=== PATIENT | male | born 1990 | race Caucasian/White ===

== ENCOUNTER 2018-09-16 23:24 | Inpatient (IN) ==
[2018-09-16] MEDS ORDERED: NS 2,000 ML IV ONE (23:52)
[2018-09-16] MEDS ORDERED: ZOFRAN IV ONE (23:53)
[2018-09-16] MEDS ORDERED: HUMULIN R IV ONE (23:57)
--- NOTE | 2018-09-17 00:07 | PROVIDER DOCUMENTATION ---
This chart was entered by Ashleigh Kim Scribe, acting as scribe for Urban Chandler MD. HPI-General Adult - General Chief Complaint: High Blood Sugar Stated Complaint: "DKA" Time Seen by Provider: 09/16/18 23:47 Source: patient, family (father) Allergies/Adverse Reactions: Patient Allergies Allergy/AdvReac Type Severity Reaction Status Date / Time No Known Allergies Allergy Verified 03/15/16 16:01 Home Medications: Home Medication List Medication Instructions Recorded Confirmed Last Taken Type Insulin Aspart [Novolog Flexpen] 5 unit SQ TID #1 insuln.pen 06/18/18 Unknown Rx Insulin Glargine [Lantus] 20 unit SUBQ QAM #1 insuln.pen 06/18/18 Unknown Rx - History of Present Illness -Gen Adult Nature of Presenting Problems: 28 yom presents to ed with possible DKA. reports weakness, chills,fatigue, n,v. States checked BS yesterday and it was 480. Pt reports taking insulin. Review of Systems - Adult - REVIEW OF SYSTEMS - ADULT Constitutional: reports: chills, fatique. denies: fever, night sweats, weight gain, weight loss Eyes: denies: discharge, blurred vision, double vision, redness Ears, Nose, Mouth & Throat: denies: sinus problem, throat pain Cardiovascular: denies: chest pain, irregular heart rate, orthopnea, syncope Respiratory: denies: cough, shortness of breath, wheezing Gastrointestinal: reports: nausea, vomiting. denies: abdominal pain, constipation, diarrhea, poor appetite Genitourinary: denies: flank pain, frequent UTI's, hematuria, hesitency, incontinence Musculoskeletal: reports: muscle aches, muscle weakness. denies: joint pain, joint swelling Integumentary: denies: hives, mole changes, nail changes, skin sores/ulcer, skin thickening Neurological: denies: ataxia, dizziness/vertigo, headache/migraines, numbness, paresthesia, seizure, slurred speech, syncope, tremors Psychiatric: reports: no symptoms reported Endocrine: reports: see HPI, cold intolerance, increased thirst Hematologic/Lymphatic: denies: blood clots, low blood count, lymphedema, prolonged bleeding, swollen lymph nodes Allergic/Immunologic: reports: no symptoms reported All Other Systems: Reviewed and Negative Past History - Adult - PAST MEDICAL HISTORY-ADULT Review of Records: reports: Nursing Assessment Review, Medications Reviewed Major Childhood Illnesses: reports: denies history Cardiovascular: reports: denies history Respiratory: reports: denies history Gastrointestinal: reports: denies history Obstetrical/Gynecological: reports: denies history Genitourinary: reports: denies history Musculoskeletal: reports: denies history Neurological: reports: denies history Endocrine/Immune: reports: Diabetes Other Conditions: reports: denies history - IMMUNIZATION STATUS Childhood Immunizations: See Nurse Assessment Flu Vaccine: See Nurse Assessment - FAMILY HISTORY Family History: reviewed, not pertinent - SOCIAL HISTORY Smoking: cigarettes, less than 1 pack/day Provider spent 3-5 mins advising pt. on dangers of tobacco.: Discussed manners to quit use, and f/u contacts for add'l counseling. Substance Use: none/never Physical Exam-General - PHYSICAL EXAM-ADULT Initial Vital Signs Reviewed: Yes - CONSTITUTIONAL General Appearance: alert, severe distress, thin, lethargic, obtunded. negative : appears well - EYES Eyes: PERRL/EOMI, pink conjunctivae - HEAD, EARS, NOSE, MOUTH & THROAT HENMT: TMs normal, other (fruity odor of breath). negative: moist mucous membranes (dry) - NECK Neck: non-tender, full range of motion, supple, normal inspection - RESPIRATORY Respiratory: lungs clear, normal breath sounds, no pleuratic chest pain, no respiratory distress, no accessory muscle use - CARDIOVASCULAR Cardiovascular: tachycardia - GASTROINTESTINAL (ABDOMEN) Abdominal Exam: non tender, soft, no organomegaly, no pulsatile mass - MUSCULOSKELETAL Back Exam: normal inspection Extremity: normal range of motion, non-tender - SKIN Integumentary: warm/dry. negative: normal color (flush), normal turgor ( decreased) - NEUROLOGIC Neurologic: grossly normal - PSYCHIATRIC Psych/Mental Status: oriented x 3 Progress - PLAN OF CARE/RESULTS Progress/Plan/Lab Results: Vital Signs - 8 hr 09/16/18 23:38 Temperature 97.9 F Pulse Rate 110 H Respiratory Rate 20 Blood Pressure 127/72 O2 Sat by Pulse Oximetry 99 Orders Category Date Time Status FSBS/Accucheck Result NOW Care 09/16/18 23:48 Active acute [FLAT/UPRIGHT ABD/1 VIEW CHEST] [RAD] Stat Exams 09/16/18 23:54 Ordered ABG [RESP] Routine Lab 09/16/18 23:52 Ordered BLOOD CULTURE [BLDCUL] Stat Lab 09/16/18 23:53 Uncollected CBC WITH ELECTRONIC DIFF [HEME] Stat Lab 09/16/18 23:53 Ordered CMP [COMPREHENSIVE METABOLIC PANEL] [CHEM] Stat Lab 09/16/18 23:53 Uncollected LIPASE [CHEM] Stat Lab 09/16/18 23:55 Ordered 0.9% Sodium Chloride Inj [Ns] 2,000 ml Med 09/16/18 23:52 Active IV 999 mls/hr Insulin Human Regular [Humulin R] Med 09/16/18 23:57 Once 15 unit IV NOW ONE Ondansetron [Zofran] Med 09/16/18 23:53 Discontinued 4 mg IV NOW ONE Result Diagrams: 09/16/18 00:05 - XRAY 1 XRAY: Bilateral XRAY Study: Chest Impression: Normal (no acute pathology) 2 XRAY: Bilateral XRAY Study: Abdomen Impression: Abnormal (constipation) - CHANGE OF SHIFT REPORT (ED Provider) Report Given and Care Transferred to:: Dr. Schofield Time of Transfer: :10 Items Pending: Labs, Other (admission) Departure - Departure Date of Disposition Decision: 09/17/18 Time of Disposition Decision: 01:10 DIAGNOSIS: Diabetic keto-acidosis Qualifiers: Diabetes mellitus type: type 2 Diabetes mellitus chcf insulin use: unspecified ocean transportation intermediary insulin use status Diabetes mellitus complication detail: without coma Qualified Code(s): E11.10 - Type 2 diabetes mellitus with ketoacidosis without coma Nausea and vomiting Qualifiers: Vomiting type: unspecified Vomiting Intractability: unspecified Qualified Code( s): R11.2 - Nausea with vomiting, unspecified Disposition: ADMITTED INPATIENT 09 Certified Medical Emergency: Emergent Condition: Serious Referrals and Follow-Ups: None,PCP [Primary Care Provider] - Discharge Education: Steps to Quit Smoking, [id number] - Critical Care Note This patient required my direct & personal management of CC.: Yes Total Time (mins): 35 Critical Care Statement: This patient required my direct personal management to treat or rule out processes, the absence of which, could potentiallly result in sudden, clinically significant life or limb threatening deterioration. Attestation - Physician/ CARINE Attestation Patient care was provided by Advanced Practice Provider:: No The physician spent face to face time with patient:: Yes Advanced Practice Provider documentation review:: Supervising physician onsite and consulted in the evaluation and care of this patient. The physician did have a face to face encounter with the patient. This chart was documented by the indicated scribe, (Ashleigh Kim Scribe) and accurately reflects the services I performed and decisions made by me, Urban Chandler MD, as attested by the provider's signature.
[2018-09-17] MEDS ORDERED: HUMULIN R (PARKWAY) ONE ×2 (00:09→02:25)
[2018-09-17 00:16] LABS: BE -20.3 mmoll (-3.0-3.0); BLOOD TYPE ARTERIAL; METHB 1.3 % (0.0-1.5); O2(CT) 22.5 mL/dL (15.0-23.0); O2HB 95.4 % (95.0-99.0); PO2(98.6) 110 mmHg (60-100); SAMPLE BLOOD; SAO2 98.9 % (95.0-100.0); THB 16.7 g/dL (11.5-17.4)
[2018-09-17 00:20] LABS: ALLEN TEST YES; MODALITY ROOM AIR; PCO2(98.6) 14 mmHg (35-45); pH(98.6) 7.18 (7.35-7.45)
[2018-09-17 00:27] LABS: BASO# 0.02 X1000 (0.0-0.2); BASO% 0.1 % (0.0-0.8); EOS# 0.01 X1000 (0.0-0.7); HEMATOCRIT 43.2 % (42.0-52.0); HEMOGLOBIN 15.7 g/dL (14.0-18.0); IMM GRAN# 0.23 X1000 (0.0-0.04); IMM GRAN% 0.9 % (0.0-0.5); LYMPH# 2.92 X1000 (1.2-3.4); LYMPH% 11.5 % (20.5-51.1); MCH 30.3 PG (27-31); MCHC 36.3 g/dL (33-37); MCV 83.4 FL (81-99); MONO# 1.89 X1000 (0.11-0.59); MONO% 7.4 % (1.7-9.3); MPV 9.6 FL (7.4-10.4); NEUT# 20.37 X1000 (1.4-6.5); NEUT% 80.1 % (42.2-75.2); PLT 282 X1000 (130-400); RBC 5.18 XMIL (4.7-6.1); RDW 12.1 % (11.5-14.5); WBC 25.44 X1000 (4.8-10.8)
[2018-09-17] MEDS ORDERED: ROCEPHIN 1 GM in NS 50 ML IV ONE (00:57)
[2018-09-17 00:59] LABS: BILIRUBIN URINE NEGATIVE (NEGATIVE); BLOOD URINE 1+ (NEGATIVE); CLARITY CLEAR (CLEAR); KETONE URINE 3+(Large) mg/dL (NEGATIVE); LEUKOCYTES URINE NEGATIVE (NEGATIVE); NITRITE URINE NEGATIVE (NEGATIVE); PROTEIN URINE NEGATIVE (NEGATIVE); SP GRAVITY URINE 1.015; UROBILINOGEN URINE NORMAL
[2018-09-17 01:12] LABS: URINE EPITHELIAL CELLS <10 /HPF (<10); URINE RBC <10 /HPF (<10); URINE WBC <10 /HPF (<10)
[2018-09-17 01:13] LABS: COLOR STRAW; URINE BACTERIA 2+ /HFP; URINE SOURCE CLEAN CATCH
[2018-09-17] MEDS ORDERED: NS 100 ML ONE (02:27)
[2018-09-17 02:38] LABS: ALBUMIN 4.3 g/dL (3.5-5.0); CALCIUM 8.4 mg/dL (8.8-10.2); CREATININE 1.6 mg/dL (0.7-1.2); POTASSIUM 5.6 mmol/L (3.5-5.1); TOTAL BILIRUBIN 0.4 mg/dL (0.20-1.00); TOTAL PROTEIN 7.8 g/dL (6.3-8.3)
[2018-09-17] MEDS ORDERED: NS 1,000 ML ONE ×2 (02:44→07:56)
[2018-09-17] MEDS ORDERED: NS 1,000 ML IV ONE ×2 (02:59→07:59)
[2018-09-17] MEDS: HUMULIN R (PARKWAY) 100 UNITS in NS 100 ML IV SCH ×5 (03:15→14:25)
[2018-09-17 04:22] LABS: AGAP 23; BUN 45 mg/dL (8-22); CALCIUM 8.1 mg/dL (8.8-10.2); CHLORIDE 95 mmol/L (98-107); COSMO 290; CREATININE 1.2 mg/dL (0.7-1.2); ESTIMATED GFR > 60; POTASSIUM 4.5 mmol/L (3.5-5.1); SODIUM 130 mmol/L (136-145); TCO2 13 mmol/L (25-35)
[2018-09-17 04:24] LABS: GLUCOSE 425 mg/dL (70-104)
--- NOTE | 2018-09-17 05:49 | Diag Imaging Result Doc PS360 ---
EXAM: FLAT/UPRIGHT ABD/1 VIEW CHEST HISTORY: nausea and vomiting TECHNIQUE: Flat and upright with chest, four views COMPARISON: None. FINDINGS: The lungs are well expanded. No cardiomegaly. No pneumonia. There has been prior surgery to the left clavicle. No free air beneath the diaphragm. No organomegaly. Prominent stool throughout the colon. No bowel obstruction. No abnormal abdominal calcifications. The stomach is filled with fluid and debris. IMPRESSION: Constipation Electronically signed by Ronnell Mckay 09/17/2018 5:47 AM
[2018-09-17] MEDS: NS 1,000 ML IV SCH ×2 (08:15→22:10)
[2018-09-17] MEDS ORDERED: ZOFRAN IV PRN ×2 (08:32→11:00)
[2018-09-17 08:56] LABS: AGAP 11; BUN 33 mg/dL (8-22); CALCIUM 7.6 mg/dL (8.8-10.2); CHLORIDE 104 mmol/L (98-107); COSMO 279; CREATININE 0.9 mg/dL (0.7-1.2); ESTIMATED GFR > 60; GLUCOSE 189 mg/dL (70-104); PHOSPHORUS 1.7 mg/dL (2.7-4.5); POTASSIUM 4.2 mmol/L (3.5-5.1); SODIUM 133 mmol/L (136-145); TCO2 19 mmol/L (25-35)
[2018-09-17] MEDS ORDERED: SODIUM PHOSPHATE 30 MMOL in D5W 250 ML IV PRN (11:00)
[2018-09-17] MEDS ORDERED: D50W SYRINGE IV PRN (11:00)
[2018-09-17] MEDS ORDERED: TYLENOL PO PRN (11:00)
[2018-09-17] MEDS ORDERED: POTASSIUM CHLORIDE 10% LIQUID PO PRN (11:00)
[2018-09-17] MEDS ORDERED: MAGNESIUM SULFATE 2 GM/S.W.I. 2 GM/50 ML IVPB IV PRN (11:00)
[2018-09-17] MEDS ORDERED: POTASSIUM CHLORIDE 20 MEQ/SWI 20 MEQ/100 ML IVPB IV PRN (11:00)
[2018-09-17] MEDS ORDERED: ZOFRAN PO PRN (11:00)
[2018-09-17] MEDS ORDERED: POTASSIUM CHLORIDE 20 MEQ/SWI 40 MEQ/200 ML IVPB IV PRN (11:00)
[2018-09-17] MEDS ORDERED: POTASSIUM CHLORIDE 20% LIQUID PO PRN (11:00)
[2018-09-17] MEDS ORDERED: ZOFRAN ODT PO PRN (11:12)
[2018-09-17 14:00] LABS: AGAP 9; BUN 30 mg/dL (8-22); CHLORIDE 104 mmol/L (98-107); COSMO 274; CREATININE 0.8 mg/dL (0.7-1.2); ESTIMATED GFR > 60; GLUCOSE 97 mg/dL (70-104); PHOSPHORUS 2.1 mg/dL (2.7-4.5); SODIUM 134 mmol/L (136-145); TCO2 21 mmol/L (25-35)
[2018-09-17] MEDS: D5 NS 1,000 ML IV SCH (14:44)
[2018-09-17] MEDS: ZOSYN 3.375 GM in NS 50 ML IV SCH ×2 (16:08→20:01)
[2018-09-17] MEDS ORDERED: FLU VACCINE IM ONE (16:19)
[2018-09-17] MEDS ORDERED: NICODERM PATCH TD PRN (16:21)
[2018-09-17] MEDS: HUMALOG (PARKWAY) SUBQ SCH ×2 (17:01→22:11)
[2018-09-17 17:56] LABS: AGAP 10; BUN 27 mg/dL (8-22); CALCIUM 7.9 mg/dL (8.8-10.2); CHLORIDE 106 mmol/L (98-107); COSMO 276; CREATININE 0.7 mg/dL (0.7-1.2); ESTIMATED GFR > 60; GLUCOSE 149 mg/dL (70-104); PHOSPHORUS 1.7 mg/dL (2.7-4.5); POTASSIUM 3.9 mmol/L (3.5-5.1); SODIUM 134 mmol/L (136-145); TCO2 19 mmol/L (25-35)
--- NOTE | 2018-09-17 19:23 | HISTORY AND PHYSICAL ---
CHIEF COMPLAINT: Fatigue, nausea, vomiting, and DKA. HISTORY OF PRESENT ILLNESS: This is a 28-year-old gentleman who is well-known to our service for admissions for the same. He presents complaining of generalized weakness, fatigue, nausea, and vomiting. He states this has been present for 4 to 5 days. He has not been taking his insulin. He was actually hospitalized in June 2018 for the same, and he was given prescriptions for NovoLog FlexPen and Lantus. He states he never filled these. Workup in the emergency room is consistent with DKA, and he has been admitted for such. PAST MEDICAL HISTORY: Diabetes mellitus type 1, with noncompliance. PAST SURGICAL HISTORY: Shoulder surgery. SOCIAL HISTORY: He smokes about a pack a day. He uses marijuana daily. He denies any other illicit drugs. He does drink alcohol socially. FAMILY HISTORY: Grandparents were diabetic. ALLERGIES: No known drug allergies. HOME MEDICATIONS: The patient has been taking none. REVIEW OF SYSTEMS: Discussed with patient, with pertinent positives stated in the HPI. He denied any syncope, dizziness, any chest pain, palpitations, any fever, any shortness of breath, cough, any black or bloody vomitus or stools, hematuria, dysuria, frequency, urgency. PHYSICAL EXAMINATION: GENERAL: This is a 28-year-old gentleman who is lying in the bed in no distress. VITAL SIGNS: Blood pressure is 116/82, with a heart rate of 88. Respirations are 18. Temperature is 98.9 degrees oral, with room air saturations 97%. EYES: Pupils are equal, round, react to light. EOMs are intact. Sclerae are anicteric. HEENT: Head is normocephalic, atraumatic. Mucous membranes are dry. NECK: Supple, with trachea midline. CARDIOVASCULAR: Regular rate and rhythm. S1 and S2 appreciated. He has no lower extremity edema, with peripheral pulses palpable x4 extremities. PULMONARY: Breath sounds are clear, with no increased work of breathing noted. Chest rises and falls symmetrically with respiration. GASTROINTESTINAL: Abdomen is soft, nontender, with bowel sounds in all 4 quadrants. SKIN: Warm and dry, with poor turgor. NEUROLOGIC: He is lethargic. He is obtunded. He will turn his head to his name being called. He will answer questions, although he mumbles. It is very difficult to understand. His mother is at bedside and states, "This is the way he acts when his is in DKA." LABS: WBC 25.4, with hemoglobin 15.7, hematocrit 43.2, platelets 282,000. Sodium 121, with a potassium of 5.6. BUN 57, creatinine 1.6, with a glucose of 766. His CO2 is 7, with an anion gap of 32. Blood cultures and urine culture are pending. Abdominal x-ray reveals constipation. Chest reveals lungs are well-expanded. No cardiomegaly. No pneumonia. There has been prior left clavicle surgery. ASSESSMENT: 1. Diabetic ketoacidosis. 2. Nausea and vomiting. 3. Hyponatremia. 4. Hyperkalemia. 5. Acute kidney injury. 6. Intravascular volume depletion, secondary to #1. 7. Leukocytosis. 8. Constipation. 9. Diabetes mellitus type 1, noncompliant with medication and diet. PLAN: The patient will be admitted to the ICU. He will be placed on DKA protocol. We will start antibiotic coverage of Zosyn at present, and any further antibiotics will be culture-driven. We will give Zofran for nausea and vomiting. We will give a nicotine patch as needed for craving. For constipation, we will use lactulose. Further treatments pending hospital course. Dictated by NICHOLAS Chase for Jp Palomino MD This chart was documented by, NICHOLAS Chase and accurately reflects the services performed, treatment plan and medical decisions as attested by the providers signature Jp Palomino MD. cc: NICHOLAS Chase MD
[2018-09-17 21:15] LABS: AGAP 8; BUN 25 mg/dL (8-22); CALCIUM 8.1 mg/dL (8.8-10.2); CHLORIDE 103 mmol/L (98-107); COSMO 279; CREATININE 0.8 mg/dL (0.7-1.2); ESTIMATED GFR > 60; GLUCOSE 243 mg/dL (70-104); MAGNESIUM 2.1 mg/dL (1.5-2.7); PHOSPHORUS 1.5 mg/dL (2.7-4.5); POTASSIUM 3.8 mmol/L (3.5-5.1); SODIUM 133 mmol/L (136-145); TCO2 22 mmol/L (25-35)
[2018-09-18] MEDS: NS 1,000 ML IV SCH ×4 (01:24→04:57)
[2018-09-18] MEDS: D5 NS 1,000 ML IV SCH (01:24)
[2018-09-18] MEDS: ZOSYN 3.375 GM in NS 50 ML IV SCH ×2 (03:01→09:56)
[2018-09-18] MEDS: HUMALOG (PARKWAY) SUBQ SCH ×2 (06:53→14:45)
[2018-09-18 07:17] LABS: HEMATOCRIT 32.8 % (42.0-52.0); HEMOGLOBIN 11.8 g/dL (14.0-18.0); MCH 30.4 PG (27-31); MCV 84.5 FL (81-99); MPV 8.6 FL (7.4-10.4); RBC 3.88 XMIL (4.7-6.1); RDW 12.8 % (11.5-14.5); WBC 10.66 X1000 (4.8-10.8)
[2018-09-18 07:54] LABS: AGAP 10; ALKALINE PHOSPHATASE 70 U/L (32-122); BUN 19 mg/dL (8-22); CALCIUM 7.8 mg/dL (8.8-10.2); CHLORIDE 105 mmol/L (98-107); COSMO 283; CREATININE 0.5 mg/dL (0.7-1.2); ESTIMATED GFR > 60; GLUCOSE 150 mg/dL (70-104); GOT 20 U/L (10-34); GPT 17 U/L (10-44); MAGNESIUM 1.8 mg/dL (1.5-2.7); PHOSPHORUS 1.6 mg/dL (2.7-4.5); POTASSIUM 3.7 mmol/L (3.5-5.1); SODIUM 139 mmol/L (136-145); TCO2 24 mmol/L (25-35); TOTAL PROTEIN 5.1 g/dL (6.3-8.3)
[2018-09-18 12:55] VITALS: BP 117/77
--- NOTE | 2018-09-19 05:03 | DISCHARGE SUMMARY ---
ADMISSION DATE: 09/16/2018 DISCHARGE DATE: 09/18/2018 DIAGNOSES: 1. Diabetic ketoacidosis. 2. Nausea and vomiting, resolved. 3. Hyponatremia and hyperkalemia, resolved. 4. Acute kidney injury, resolved. 5. Intravascular volume depletion, resolved. 6. Leukocytosis, resolved. 7. Diabetes mellitus type 1, noncompliant with medication and diet. DIAGNOSTICS: Abdominal x-ray revealed constipation. Urine culture revealed no growth. HOSPITAL COURSE: Mr. Malcolm presented to the emergency room complaining of abdominal pain, nausea, and vomiting. He was found to be in DKA with an admission blood sugar of 766, with a sodium of 121, potassium 5.6, CO2 was 7, with an anion gap of 32. He was treated with DKA protocol. Insulin drip was weaned since blood sugars have been in the 140 to 240 range. Electrolytes of course have normalized. He has had no further nausea or vomiting. He did tolerate a diabetic diet without any abdominal pain, nausea, or vomiting. Mr. Malcolm was discharged on June 18, 2018 with the same. He was given prescriptions for NovoLog FlexPen as well as Lantus. He states he did not fill these and he has not been taking insulin. Once again, we did discuss the perils of being noncompliant with his diabetes including but not limited to blindness and renal failure, his being noncompliant to which he did voice understanding and stated "everybody keeps telling me that". We also discussed smoking cessation as well as marijuana cessation to which he stated he had no intentions of stopping at this time. DISCHARGE PHYSICAL EXAMINATION: Cardiovascular: Regular rate and rhythm. S1 and S2 are appreciated. Pulmonary: Breath sounds are clear with no increased work of breathing noted. Gastrointestinal: Abdomen is soft, nontender, nondistended with bowel sounds in all 4 quadrants. Neurologic: He is alert and oriented x3. Discharge Vital Signs: Blood pressure is 117/77, with heart rate of 71, respirations are 16, temperature is 98.3 degrees oral, with room air saturation of 100%. DISCHARGE MEDICATIONS: NovoLog FlexPen 5 units subcutaneously with meals and Lantus 20 units subcutaneous q.a.m. DISPOSITION: He is being discharged home in stable condition with family members. This is a greater than 30 minute discharge. FOLLOWUP: He needs to follow up with his primary care provider as well as his health claims examiner. Dictated by NICHOLAS Chase for Jp Palomino MD This chart was documented by, NICHOLAS Chase and accurately reflects the services performed, treatment plan and medical decisions as attested by the providers signature Jp Palomino MD. cc: NICHOLAS Chase MD
--- NOTE | 2018-09-19 06:49 | DISCHARGE SUMMARY ---
ADMISSION DATE: 09/16/2018 DISCHARGE DATE: 09/18/2018 DISCHARGE DIAGNOSES: 1. Diabetic ketoacidosis, resolved. 2. Nausea and vomiting, resolved. 3. Hyponatremia, resolved. 4. Hyperkalemia, resolved. 5. Acute kidney injury, resolved. 6. Intravascular volume depletion, resolved. 7. Diabetes type 1, insulin dependent, extremely noncompliant. CONSULTATIONS: None. PROCEDURES: None. BRIEF HOSPITAL COURSE: The patient is a 28-year-old male who unfortunately is extremely noncompliant. He currently is awake, alert, and oriented. He was admitted to the hospital, confused, disoriented, and unable to speak. He was noted to be in DKA. Thankfully, this has resolved. Unfortunately, it appears as though he just simply quit taking his insulin, and has not taken it for several days. His father, who was in the room, seems somewhat ambivalent to be imperative that Mr. Malcolm has to take his insulin or he will . DISPOSITION: Patient will be discharged home. Again, discussed with him that one of these times if he simply refuses to take his insulin, that he may have a stroke, lose his vision, lose his ability to speak, or care for himself. Mr. Malcolm seems unphased by this revelation. We will discharge him home. We did write a prescription for his normal home insulin. Hopefully, he will go fill it. cc: Jp Palomino MD
== END 2018-09-18 14:55 | disposition home or self-care (01) | DRG 638 ==
LOC: P.ED 23:24 → P.EDIPHOLD 23:25
PROVIDERS: ATTEND Family Medicine
CPT/HCPCS: 36415; 51798; 74022; 80048; 80053; 81001; 82805; 82948; 83690; 83735; 84100; 85025; 85027; 87040; 87088; 96361; 96365; 96366; 96367; 96375; 99285; 99291; A9270; J0696; J1815; J2405; J2543; J7030; J7042; XXXXX

== ENCOUNTER 2019-02-07 05:14 | Inpatient (IN) ==
[2019-02-07] MEDS ORDERED: ZOFRAN IV ONE (05:28)
[2019-02-07] MEDS ORDERED: NS 1,000 ML IV ONE ×3 (05:28→06:51)
[2019-02-07 06:12] LABS: BASO# 0.02 X1000 (0.0-0.2); BASO% 0.1 % (0.0-0.8); HEMATOCRIT 47.5 % (42.0-52.0); HEMOGLOBIN 16.3 g/dL (14.0-18.0); IMM GRAN# 0.07 X1000 (0.0-0.04); IMM GRAN% 0.4 % (0.0-0.5); LYMPH% 14.6 % (20.5-51.1); MCH 31.2 PG (27-31); MCHC 34.3 g/dL (33-37); MCV 90.8 FL (81-99); MONO# 0.72 X1000 (0.11-0.59); MONO% 4.4 % (1.7-9.3); MPV 9.7 FL (7.4-10.4); NEUT# 13.22 X1000 (1.4-6.5); NEUT% 80.5 % (42.2-75.2); PLT 283 X1000 (130-400); RBC 5.23 XMIL (4.7-6.1); RDW 13.2 % (11.5-14.5); WBC 16.43 X1000 (4.8-10.8)
--- NOTE | 2019-02-07 06:21 | PROVIDER DOCUMENTATION ---
HPI-General Adult - General Chief Complaint: Nausea/Vomiting Stated Complaint: VOMITING Time Seen by Provider: 02/07/19 05:24 Source: patient Allergies/Adverse Reactions: Patient Allergies Allergy/AdvReac Type Severity Reaction Status Date / Time No Known Allergies Allergy Verified 09/17/18 10:31 Home Medications: Home Medication List Medication Instructions Recorded Confirmed Last Taken Type Insulin Aspart [Novolog Flexpen] 5 unit SQ TID #1 insuln.pen 09/18/18 Unknown Rx Insulin Glargine [Lantus] 20 unit SUBQ QAM #1 insuln.pen 09/18/18 Unknown Rx - History of Present Illness -Gen Adult Nature of Presenting Problems: Pt presents with hyperglycemia, x 2 days, in 200-300s, associated with n/v x 2 days, similar to prior, type I DM, has been taking insulin, pt denies change in diet or medication, pt denies f/c, amador, cp, sob, cough, ap, diarrhea. Pt is lying in bed in no acute distress. Location of Pain/Injury: reports: none Pain Radiation: reports: no radiation Quality of Pain: reports: none Onset/Duration: reports: 3 days ago Timing: reports: still present Context/Activities at Onset: reports: none Modifying Factors: improves with: nothing Associated Symptoms: reports: nausea, vomiting Similar Symptoms Previously?: Yes Recently seen or treated by another doctor?: No Review of Systems - Adult - REVIEW OF SYSTEMS - ADULT Constitutional: reports: no symptoms reported Eyes: reports: no symptoms reported Ears, Nose, Mouth & Throat: reports: no symptoms reported Cardiovascular: reports: no symptoms reported Respiratory: reports: no symptoms reported Gastrointestinal: reports: see HPI Genitourinary: reports: no symptoms reported Musculoskeletal: reports: no symptoms reported Integumentary: reports: no symptoms reported Neurological: reports: no symptoms reported Psychiatric: reports: no symptoms reported Endocrine: reports: see HPI Hematologic/Lymphatic: reports: no symptoms reported Allergic/Immunologic: reports: no symptoms reported All Other Systems: Reviewed and Negative Past History - Adult - PAST MEDICAL HISTORY-ADULT Review of Records: reports: Old Records Reviewed, Nursing Assessment Review, Medications Reviewed, Social history reviewed & non-contributory. Major Childhood Illnesses: reports: denies history Cardiovascular: reports: denies history Respiratory: reports: denies history Gastrointestinal: reports: denies history Obstetrical/Gynecological: reports: denies history Genitourinary: reports: denies history Musculoskeletal: reports: denies history Neurological: reports: denies history Endocrine/Immune: reports: Diabetes Other Conditions: reports: denies history - IMMUNIZATION STATUS Childhood Immunizations: See Nurse Assessment Flu Vaccine: See Nurse Assessment - FAMILY HISTORY Family History: reviewed, not pertinent Physical Exam-General - PHYSICAL EXAM-ADULT Initial Vital Signs Reviewed: Yes - CONSTITUTIONAL General Appearance: appears well - EYES Eyes: PERRL/EOMI - HEAD, EARS, NOSE, MOUTH & THROAT HENMT: normal ENT inspection - NECK Neck: normal inspection - RESPIRATORY Respiratory: no respiratory distress, no accessory muscle use - CARDIOVASCULAR Cardiovascular: regular rate, rhythm - GASTROINTESTINAL (ABDOMEN) Abdominal Exam: non tender, soft - LYMPHATIC Lymphatic: no adenopathy - MUSCULOSKELETAL Back Exam: normal inspection Extremity: normal range of motion - SKIN Integumentary: normal color - NEUROLOGIC Neurologic: grossly normal - PSYCHIATRIC Psych/Mental Status: normal mood/affect Progress - PLAN OF CARE/RESULTS Progress/Plan/Lab Results: Vital Signs - 8 hr 02/07/19 05:17 Temperature 98.4 F Pulse Rate 116 H Respiratory Rate 20 Blood Pressure 123/89 O2 Sat by Pulse Oximetry 100 Laboratory Results - last 24 hr 02/07/19 02/07/19 05:25 05:30 WBC 16.43 H RBC 5.23 Hgb 16.3 Hct 47.5 MCV 90.8 MCH 31.2 H MCHC 34.3 RDW Std Deviation 13.2 Plt Count 283 MPV 9.7 Immature Gran % (Auto) 0.4 Neut % (Auto) 80.5 H Lymph % (Auto) 14.6 L Sac % (Auto) 4.4 Eos % (Auto) 0.0 Baso % (Auto) 0.1 Immature Gran # (Auto) 0.07 H Neut # (Auto) 13.22 H Lymph # (Auto) 2.40 Sac # (Auto) 0.72 H Eos # (Auto) 0.00 Baso # (Auto) 0.02 POC Glucose 360 H Orders Category Date Time Status CBC WITH ELECTRONIC DIFF [HEME] Stat Lab 02/07/19 05:30 Completed COMPREHENSIVE METABOLIC PANEL [CHEM] Stat Lab 02/07/19 05:30 Received urinalysis [URINALYSIS PL W/POSS RFLX CULT] [URINALYSIS Lab 02/07/19 05:28 Uncollected ] Stat 0.9% Sodium Chloride Inj [Ns] 1,000 ml Med 02/07/19 05:28 Active IV 999 mls/hr 0.9% Sodium Chloride Inj [Ns] 1,000 ml Med 02/07/19 05:28 Active IV 999 mls/hr Ondansetron [Zofran] Med 02/07/19 05:28 Discontinued 8 mg IV NOW ONE Result Diagrams: 02/07/19 05:30 02/07/19 05:30 Departure - Departure Date of Disposition Decision: 02/07/19 Time of Disposition Decision: 06:50 DIAGNOSIS: DKA, type 1 Qualifiers: Diabetes mellitus complication detail: without coma Qualified Code(s): E10.10 - Type 1 diabetes mellitus with ketoacidosis without coma Disposition: ADMITTED INPATIENT 09 Certified Medical Emergency: Emergent Condition: Fair Referrals and Follow-Ups: Livan Issa CRNP [Primary Care Provider] - - Critical Care Note This patient required my direct & personal management of CC.: No Attestation - Physician/ CARINE Attestation Patient care was provided by Advanced Practice Provider:: No The physician spent face to face time with patient:: Yes Advanced Practice Provider documentation review:: Supervising physician onsite and consulted in the evaluation and care of this patient. The physician did have a face to face encounter with the patient.
[2019-02-07 06:26] LABS: ESTIMATED GFR > 60
[2019-02-07 06:44] LABS: AGAP 35; ALBUMIN 5.3 g/dL (3.5-5.0); ALKALINE PHOSPHATASE 100 U/L (32-122); BUN 19 mg/dL (8-22); CALCIUM 9.7 mg/dL (8.8-10.2); CHLORIDE 91 mmol/L (98-107); COSMO 293; GOT 25 U/L (10-34); GPT 31 U/L (10-44); POTASSIUM 5.4 mmol/L (3.5-5.1); SODIUM 137 mmol/L (136-145); TCO2 11 mmol/L (25-35); TOTAL PROTEIN 9.1 g/dL (6.3-8.3)
[2019-02-07 06:48] LABS: GLUCOSE 411 mg/dL (70-104)
[2019-02-07] MEDS ORDERED: TYLENOL PO PRN (06:51)
[2019-02-07] MEDS ORDERED: MORPHINE IV PRN (06:51)
[2019-02-07] MEDS ORDERED: ZOFRAN IV PRN (06:51)
[2019-02-07] MEDS ORDERED: TORADOL IV PRN (06:51)
[2019-02-07 07:32] LABS: BILIRUBIN URINE NEGATIVE (NEGATIVE); BLOOD URINE 4+ (NEGATIVE); CLARITY CLEAR (CLEAR); COLOR YELLOW; KETONE URINE 3+(Large) mg/dL (NEGATIVE); LEUKOCYTES URINE NEGATIVE (NEGATIVE); NITRITE URINE NEGATIVE (NEGATIVE); PROTEIN URINE TRACE mg/dL (NEGATIVE); URINE BACTERIA NEGATIVE /HFP; URINE CAST NONE SEEN /LPF; URINE CRYSTAL NONE SEEN /HPF; URINE EPITHELIAL CELLS <10 /HPF (<10); URINE SOURCE CLEAN CATCH; URINE WBC <10 /HPF (<10); URINE YEAST NONE SEEN /HPF; UROBILINOGEN URINE NORMAL
[2019-02-07] MEDS ORDERED: HUMULIN R (PARKWAY) 100 UNITS in NS 100 ML IV SCH (07:45)
[2019-02-07] MEDS ORDERED: HUMULIN R (PARKWAY) ONE (07:46)
[2019-02-07] MEDS ORDERED: HUMULIN R (PARKWAY) IV ONE (08:03)
[2019-02-07 08:35] LABS: ACETONE SERUM SMALL (NEGATIVE)
[2019-02-07 08:46] LABS: BASO# 0.01 X1000 (0.0-0.2); BASO% 0.1 % (0.0-0.8); HEMATOCRIT 44.9 % (42.0-52.0); HEMOGLOBIN 15.4 g/dL (14.0-18.0); IMM GRAN# 0.06 X1000 (0.0-0.04); IMM GRAN% 0.5 % (0.0-0.5); LYMPH% 9.1 % (20.5-51.1); MCH 31.6 PG (27-31); MCHC 34.3 g/dL (33-37); MONO# 0.55 X1000 (0.11-0.59); MONO% 4.2 % (1.7-9.3); MPV 9.7 FL (7.4-10.4); NEUT# 11.42 X1000 (1.4-6.5); NEUT% 86.1 % (42.2-75.2); PLT 240 X1000 (130-400); RBC 4.88 XMIL (4.7-6.1); RDW 13.3 % (11.5-14.5); WBC 13.24 X1000 (4.8-10.8)
[2019-02-07 08:47] LABS: CK PROFILE 72 U/L (24-204)
[2019-02-07 08:53] LABS: UR AMPHETAMINES QUAL NONE DETECTED (NONE DETECT); UR BARBITUATES QUAL NONE DETECTED (NONE DETECT); UR BENZODIAZEPIN QUAL NONE DETECTED (NONE DETECT); UR CANNABINOIDS QUAL NONE DETECTED (NONE DETECT); UR COCAINE QUAL NONE DETECTED (NONE DETECT); UR METHADONE QUAL NONE DETECTED (NONE DETECT); UR METHAMPHETAMINE QUAL NONE DETECTED (NONE DETECT); UR OPIATES QUAL NONE DETECTED (NONE DETECT); UR OXYCODONE QUAL NONE DETECTED (NONE DETECT); UR PCP QUAL NONE DETECTED (NONE DETECT); UR PROPOXYPHENE QUAL NONE DETECTED (NONE DETECT); UR TCA QUAL NONE DETECTED (NONE DETECT)
[2019-02-07 08:54] LABS: AGAP 31; BUN 17 mg/dL (8-22); CALCIUM 8.4 mg/dL (8.8-10.2); CHLORIDE 98 mmol/L (98-107); COSMO 293; ESTIMATED GFR > 60; MAGNESIUM 1.9 mg/dL (1.5-2.7); PHOSPHORUS 2.7 mg/dL (2.7-4.5); POTASSIUM 4.6 mmol/L (3.5-5.1); SODIUM 137 mmol/L (136-145); TCO2 8 mmol/L (25-35)
[2019-02-07 08:56] LABS: GLUCOSE 409 mg/dL (70-104)
--- NOTE | 2019-02-07 09:13 | Diag Imaging Result Doc PS360 ---
EXAM: CHEST-2 VIEWS HISTORY: leukocytosis TECHNIQUE: Chest two views COMPARISON: 09/17/2018 FINDINGS: The lungs are well expanded. The heart is not enlarged. The vessels are not distended. There are no infiltrates. No pleural effusions. Prior surgery to the left clavicle. IMPRESSION: No pneumonia. Electronically signed by Ronnell cMkay 02/07/2019 9:11 AM
[2019-02-07 09:20] LABS: HEMOGLOBIN A1C 10.8 % (4.8-6.0)
[2019-02-07] MEDS ORDERED: SODIUM BICARBONATE 8.4% 100 MEQ in STERILE WATER INJ. 500 ML IV PRN (09:45)
[2019-02-07] MEDS ORDERED: SODIUM PHOSPHATE 30 MMOL in D5W 250 ML IV PRN (09:45)
[2019-02-07] MEDS ORDERED: POTASSIUM CHLORIDE 20 MEQ/SWI 20 MEQ/100 ML IVPB IV PRN (09:45)
[2019-02-07] MEDS ORDERED: D50W SYRINGE IV PRN (09:45)
[2019-02-07] MEDS ORDERED: POTASSIUM CHLORIDE 20 MEQ/SWI 40 MEQ/200 ML IVPB IV PRN (09:45)
[2019-02-07] MEDS ORDERED: MAGNESIUM SULFATE 2 GM/S.W.I. 2 GM/50 ML IVPB IV PRN (09:45)
[2019-02-07] MEDS ORDERED: POTASSIUM CHLORIDE 20% LIQUID PO PRN (09:45)
[2019-02-07] MEDS: NS 1,000 ML IV SCH ×3 (09:51→23:43)
[2019-02-07] MEDS: D5 NS 1,000 ML IV SCH (10:03)
[2019-02-07 11:15] LABS: LYMPHS 8 % (21-51); MONO 4 % (1-9); SEGS 88 % (42-75)
[2019-02-07 13:05] LABS: BASO# 0.03 X1000 (0.0-0.2); BASO% 0.2 % (0.0-0.8); HEMATOCRIT 38.8 % (42.0-52.0); HEMOGLOBIN 13.4 g/dL (14.0-18.0); IMM GRAN# 0.06 X1000 (0.0-0.04); IMM GRAN% 0.3 % (0.0-0.5); LYMPH# 3.91 X1000 (1.2-3.4); LYMPH% 22.3 % (20.5-51.1); MCH 31.5 PG (27-31); MCHC 34.5 g/dL (33-37); MCV 91.3 FL (81-99); MONO% 9.1 % (1.7-9.3); MPV 9.3 FL (7.4-10.4); NEUT# 11.91 X1000 (1.4-6.5); NEUT% 68.1 % (42.2-75.2); PLT 228 X1000 (130-400); RBC 4.25 XMIL (4.7-6.1); WBC 17.51 X1000 (4.8-10.8)
[2019-02-07 13:17] LABS: AGAP 19; BUN 14 mg/dL (8-22); CHLORIDE 105 mmol/L (98-107); COSMO 284; CREATININE 0.8 mg/dL (0.7-1.2); ESTIMATED GFR > 60; GLUCOSE 170 mg/dL (70-104); MAGNESIUM 1.8 mg/dL (1.5-2.7); PHOSPHORUS 2.4 mg/dL (2.7-4.5); POTASSIUM 4.4 mmol/L (3.5-5.1); SODIUM 140 mmol/L (136-145); TCO2 16 mmol/L (25-35)
[2019-02-07] MEDS: POTASSIUM CHLORIDE 10% LIQUID PO PRN ×2 (15:09→19:06)
--- NOTE | 2019-02-07 15:57 | HISTORY AND PHYSICAL ---
CHIEF COMPLAINT: Nausea, vomiting, high blood sugar. HISTORY OF PRESENT ILLNESS: This is a 28-year-old gentleman with a history of insulin-dependent diabetes with noncompliance. He presents to the emergency room complaining of generalized weakness, fatigue, nausea and vomiting that has been present for 2 days. He states that he has been taking his insulin as prescribed, maintaining a diabetic diet as prescribed. Stated that his blood sugars have been in the 200 to 300 range primarily. He was found to be in DKA with a white blood cell count of 13.2. PAST MEDICAL HISTORY: Diabetes mellitus type 1, insulin-dependent, extremely noncompliant. PAST SURGICAL HISTORY: Tonsillectomy and left shoulder surgery. SOCIAL HISTORY: He smokes about a half a pack a day. ALLERGIES: No known drug allergies. HOME MEDICATIONS: Cymbalta 30 mg p.o. daily, gabapentin 300 mg p.o. 3 times a day, Novolin-R rely on 20 units subcutaneous before meals. REVIEW OF SYSTEMS: Discussed with patient with pertinent positives stated in the HPI. He denied any syncope, dizziness, chest pain, palpitations, any shortness of breath, cough, fever, chills, any black or bloody vomitus or stools, any hematuria or dysuria. PHYSICAL EXAMINATION: GENERAL: This is a 31-year-old gentleman, who is lying in the stretcher in the emergency room in no distress. His dad is at the bedside. VITAL SIGNS: Blood pressure is 127/68, heart rate of 126, respirations are 20 to 22, temperature is 97.8 degrees oral with room air saturations 98 to 100 percent. EYES: Pupils are equal, round, react to light. EOMS are intact. Sclerae are anicteric. HENT: Head is normocephalic, atraumatic. Mucous membranes are dry. NECK: Supple with trachea midline. He has no JVD. CARDIOVASCULAR: Regular rate and rhythm. He is tachycardic. S1 and S2 appreciated. He has no murmur. He has no lower extremity edema. Calves are nontender bilateral with peripheral pulses palpable x4 extremities. PULMONARY: Breath sounds are clear with no increased work of breathing noted. GASTROINTESTINAL: Abdomen is soft, nontender, nondistended with bowel sounds in all 4 quadrants. GENITOURINARY: He has no CVA or suprapubic tenderness. NEUROLOGIC: He is alert and oriented x3. SKIN: Warm and dry. LABS: WBC is 13 to 16.4 with a hemoglobin of 16.3, hematocrit 47.5, and platelets of 283. Sodium 137, potassium 5.4, CO2 is 11, anion gap is 35 with a BUN of 19, creatinine of 1 and a glucose of 411. He is acetone positive. Urine drug screen reveals none detected. X-RAYS: Chest x-ray reveals no pneumonia. ASSESSMENT: 1. Diabetic ketoacidosis. 2. Insulin-dependent diabetes mellitus. 3. Nausea and vomiting. 4. Intravascular volume depletion. 5. Diabetes mellitus type 1 insulin-dependent. Extremely noncompliant. 6. Hyperkalemia. PLAN: Patient will be admitted to ICU. We will start DKA protocol and will replete electrolytes per the protocol. Use Zofran for nausea. We will start diabetic clear liquids at present and, as he improves, we will advance diet. Further treatments pending hospital course. Dictated by NICHOLAS Chase for Jp Palomino MD cc: NICHOLAS Chase MD
[2019-02-07 16:52] LABS: BASO# 0.02 X1000 (0.0-0.2); BASO% 0.1 % (0.0-0.8); EOS# 0.02 X1000 (0.0-0.7); EOS% 0.1 % (0.0-10.0); HEMATOCRIT 37.4 % (42.0-52.0); IMM GRAN# 0.03 X1000 (0.0-0.04); IMM GRAN% 0.2 % (0.0-0.5); LYMPH# 3.51 X1000 (1.2-3.4); LYMPH% 23.8 % (20.5-51.1); MCH 31.4 PG (27-31); MCHC 34.8 g/dL (33-37); MCV 90.3 FL (81-99); MONO# 1.24 X1000 (0.11-0.59); MONO% 8.4 % (1.7-9.3); MPV 9.1 FL (7.4-10.4); NEUT% 67.4 % (42.2-75.2); PLT 216 X1000 (130-400); RBC 4.14 XMIL (4.7-6.1); WBC 14.72 X1000 (4.8-10.8)
[2019-02-07 17:14] LABS: AGAP 14; BUN 11 mg/dL (8-22); CALCIUM 7.9 mg/dL (8.8-10.2); CHLORIDE 107 mmol/L (98-107); COSMO 277; CREATININE 0.7 mg/dL (0.7-1.2); ESTIMATED GFR > 60; GLUCOSE 105 mg/dL (70-104); MAGNESIUM 1.8 mg/dL (1.5-2.7); PHOSPHORUS 2.2 mg/dL (2.7-4.5); POTASSIUM 4.1 mmol/L (3.5-5.1); SODIUM 139 mmol/L (136-145); TCO2 18 mmol/L (25-35)
--- NOTE | 2019-02-07 19:29 | HISTORY AND PHYSICAL ---
ADDENDUM: Patient seen and examined by myself, full note dictated and discussed with nurse practitioner. Patient notes that he has had increased nausea, vomiting, abdominal pain for the past couple of days. States he has not really been drinking or eating anything. He has tried to take insulin although at a lower dose, notes this was not effective. His blood sugar continued to hold therefore he came to the ER. Currently patient is awake, alert, oriented. He is in no current respiratory distress, he is pleasant. HEENT: Normocephalic. Neck: Supple. CV: Regular rate. PLAN: We will admit patient the hospital ICU place on DKA protocol. Further orders as needed. cc: Jp Palomino MD
[2019-02-07 21:19] LABS: BASO# 0.02 X1000 (0.0-0.2); BASO% 0.2 % (0.0-0.8); EOS# 0.04 X1000 (0.0-0.7); EOS% 0.3 % (0.0-10.0); HEMATOCRIT 37.9 % (42.0-52.0); HEMOGLOBIN 13.1 g/dL (14.0-18.0); IMM GRAN# 0.03 X1000 (0.0-0.04); IMM GRAN% 0.2 % (0.0-0.5); LYMPH# 3.12 X1000 (1.2-3.4); LYMPH% 25.4 % (20.5-51.1); MCH 31.5 PG (27-31); MCHC 34.6 g/dL (33-37); MCV 91.1 FL (81-99); MONO# 0.99 X1000 (0.11-0.59); MONO% 8.1 % (1.7-9.3); MPV 9.1 FL (7.4-10.4); NEUT# 8.09 X1000 (1.4-6.5); NEUT% 65.8 % (42.2-75.2); PLT 204 X1000 (130-400); RBC 4.16 XMIL (4.7-6.1); RDW 12.9 % (11.5-14.5); WBC 12.29 X1000 (4.8-10.8)
[2019-02-07 21:29] LABS: AGAP 14; BUN 10 mg/dL (8-22); CALCIUM 7.9 mg/dL (8.8-10.2); CHLORIDE 104 mmol/L (98-107); COSMO 276; CREATININE 0.7 mg/dL (0.7-1.2); ESTIMATED GFR > 60; GLUCOSE 124 mg/dL (70-104); MAGNESIUM 1.8 mg/dL (1.5-2.7); PHOSPHORUS 1.6 mg/dL (2.7-4.5); POTASSIUM 4.2 mmol/L (3.5-5.1); SODIUM 138 mmol/L (136-145); TCO2 20 mmol/L (25-35)
[2019-02-08] MEDS ORDERED: HUMALOG (PARKWAY) ONE (01:25)
[2019-02-08] MEDS: HUMALOG (PARKWAY) SUBQ SCH ×3 (01:29→11:12)
[2019-02-08 05:39] LABS: BASO# 0.03 X1000 (0.0-0.2); BASO% 0.3 % (0.0-0.8); EOS# 0.09 X1000 (0.0-0.7); EOS% 0.9 % (0.0-10.0); HEMATOCRIT 37.2 % (42.0-52.0); HEMOGLOBIN 12.7 g/dL (14.0-18.0); IMM GRAN# 0.02 X1000 (0.0-0.04); IMM GRAN% 0.2 % (0.0-0.5); LYMPH# 3.56 X1000 (1.2-3.4); LYMPH% 35.1 % (20.5-51.1); MCH 30.9 PG (27-31); MCHC 34.1 g/dL (33-37); MCV 90.5 FL (81-99); MONO# 0.81 X1000 (0.11-0.59); MPV 9.2 FL (7.4-10.4); NEUT# 5.64 X1000 (1.4-6.5); NEUT% 55.5 % (42.2-75.2); PLT 193 X1000 (130-400); RBC 4.11 XMIL (4.7-6.1); RDW 12.8 % (11.5-14.5); WBC 10.15 X1000 (4.8-10.8)
[2019-02-08 06:01] LABS: AGAP 12; BUN 10 mg/dL (8-22); CHLORIDE 103 mmol/L (98-107); COSMO 275; CREATININE 0.6 mg/dL (0.7-1.2); ESTIMATED GFR > 60; GLUCOSE 128 mg/dL (70-104); MAGNESIUM 1.8 mg/dL (1.5-2.7); PHOSPHORUS 1.3 mg/dL (2.7-4.5); POTASSIUM 3.6 mmol/L (3.5-5.1); SODIUM 137 mmol/L (136-145); TCO2 23 mmol/L (25-35)
[2019-02-08] MEDS: D5 NS 1,000 ML IV SCH ×2 (06:33→06:34)
[2019-02-08] MEDS: NS 1,000 ML IV SCH (06:34)
[2019-02-08] MEDS: LANTUS INSULIN SUBQ SCH ×2 (08:24→08:46)
[2019-02-08 11:19] VITALS: BP 123/77
--- NOTE | 2019-02-08 22:01 | DISCHARGE SUMMARY ---
ADMISSION DATE: 02/07/2019 DISCHARGE DATE: 02/08/2019 DIAGNOSES: 1. Diabetic ketoacidosis. 2. Insulin-dependent diabetes mellitus. 3. Nausea and vomiting, resolved. 4. Intravascular volume depletion, resolved. 5. Hyperkalemia, resolved. DIAGNOSTICS: Chest x-ray revealed no pneumonia. HOSPITAL COURSE: Mr. Malcolm presented to the emergency room complaining of nausea, vomiting, abdominal pain, and high blood sugar. He was found to be in DKA with an anion gap of 35, a CO2 of 11, and blood sugars in the 400s. He was admitted to ICU, placed on DKA protocol. Today, he is off his insulin drip with blood sugars in the 120 to 202 range. He has had no further abdominal pain, nausea, or vomiting. He is eating a diabetic diet with no difficulty. DISCHARGE VITAL SIGNS: Blood pressure is 123/77 with a heart rate of 70, respirations are 18, temperature is 99 degrees with room air sat 100%. PHYSICAL EXAMINATION: Cardiovascular: Regular rate and rhythm. S1 and S2 appreciated. Pulmonary: Breath sounds are clear with no increased work of breathing noted. Gastrointestinal: Abdomen is soft, nontender, nondistended with bowel sounds in all 4 quadrants. Neurologic: He is alert and oriented x3. Skin: Warm and dry. DISCHARGE MEDICATIONS: 1. Cymbalta 30 mg p.o. daily. 2. Gabapentin 300 mg p.o. t.i.d. 3. Novolin R 20 units before meals. FOLLOWUP: NICHOLAS Banegas. He is to call Sunday to schedule follow-up visit. He has been instructed to call to be seen sooner or return to the ER for recurring nausea, vomiting, abdominal pain, any syncope, dizziness, chest pain, palpitations, any black or bloody vomitus or stools, or temperature greater than 101.5 or for any questions or concerns that he may have. He is being discharged home in stable condition with family members. TIME SPENT: This is a greater than 30 minute discharge. Dictated by NICHOLAS Chase for Jp Palomino MD cc: NICHOLAS Chase MD Eric Crampsey, CRNP
--- NOTE | 2019-02-09 09:15 | DISCHARGE SUMMARY ---
ADMISSION DATE: 02/07/2019 DISCHARGE DATE: 02/08/2019 ADDENDUM: Patient seen and examined by myself. Full note dictated and discussed with nurse practitioner. Patient, unfortunately, is a 28-year-old, somewhat angry individual who is not compliant with his diabetes, although to his benefit, his A1c actually has improved from 14 the last time he was in the hospital to 10. Hopefully, he will continue to understand the importance of blood sugar control and will continue to attempt to improve this. He was placed in the hospital in DKA. Blood sugars were elevated. They did improve with treatment. On discharge, he is awake and alert. He is in no distress and, therefore, he will be discharged home. His blood sugars are much improved. He is eating a full diet. Instructions were given on how to adjust his 70/30 insulin. Please see full note. cc: Jp Palomino MD
== END 2019-02-08 11:38 | disposition home or self-care (01) | DRG 639 ==
LOC: P.ED 05:14 → P.ICU 08:15
PROVIDERS: ATTEND Family Medicine
CPT/HCPCS: 71020; 71046; 80048; 80053; 80104; 80301; 80305; 81001; 82009; 82550; 82948; 83036; 83605; 83735; 84100; 84484; 85025; 96361; 96374; 99285; A9270; G0431; G0434; G0477; J1815; J2405; J7030; XXXXX

== ENCOUNTER 2019-04-05 02:26 | Inpatient (IN) ==
[2019-04-05] MEDS ORDERED: NS 2,000 ML IV ONE (02:49)
[2019-04-05] MEDS ORDERED: G.I. COCKTAIL PO ONE (03:20)
[2019-04-05 03:27] LABS: BASO# 0.04 X1000 (0.0-0.2); BASO% 0.3 % (0.0-0.8); EOS# 0.01 X1000 (0.0-0.7); EOS% 0.1 % (0.0-10.0); HEMATOCRIT 50.1 % (42.0-52.0); IMM GRAN% 0.8 % (0.0-0.5); LYMPH% 26.2 % (20.5-51.1); MCH 31.4 PG (27-31); MCHC 35.9 g/dL (33-37); MCV 87.4 FL (81-99); MONO# 0.62 X1000 (0.11-0.59); MONO% 5.2 % (1.7-9.3); MPV 9.7 FL (7.4-10.4); NEUT# 7.94 X1000 (1.4-6.5); NEUT% 67.4 % (42.2-75.2); PLT 324 X1000 (130-400); RBC 5.73 XMIL (4.7-6.1); RDW 11.9 % (11.5-14.5); WBC 11.81 X1000 (4.8-10.8)
[2019-04-05] MEDS ORDERED: HUMULIN R IV ONE ×2 (03:29→06:30)
[2019-04-05] MEDS ORDERED: NS 1,000 ML IV ONE ×2 (03:29→04:41)
--- NOTE | 2019-04-05 03:32 | PROVIDER DOCUMENTATION ---
HPI-General Adult - General Chief Complaint: High Blood Sugar Stated Complaint: "DIABETIC KETOACIDOSIS" Time Seen by Provider: 04/05/19 02:48 Source: patient Allergies/Adverse Reactions: Patient Allergies Allergy/AdvReac Type Severity Reaction Status Date / Time No Known Allergies Allergy Verified 02/07/19 07:27 Home Medications: Home Medication List Medication Instructions Recorded Confirmed Last Taken Type RX: Duloxetine [Cymbalta] 30 mg PO DAILY 02/07/19 04/05/19 Unknown History RX: Gabapentin 300 mg PO TID 02/07/19 04/05/19 Unknown History Insulin Aspart [Novolog] 15 units SQ AC 04/05/19 04/05/19 Unknown History Insulin Glargine,Hum.rec.anlog 10 units SQ BID 04/05/19 04/05/19 Unknown History [Lantus Solostar] - History of Present Illness -Gen Adult Nature of Presenting Problems: Patient is a 29 year old white male with history of diabetes, takes Lantus and Novolog. Patient reports not eating for past 5 days with nausea and vomiting. Denies fever. Review of Systems - Adult - REVIEW OF SYSTEMS - ADULT Constitutional: reports: see HPI, chills, fatique. denies: fever Eyes: reports: no symptoms reported Ears, Nose, Mouth & Throat: reports: no symptoms reported Cardiovascular: denies: chest pain Respiratory: denies: cough, shortness of breath Gastrointestinal: reports: abdominal pain, nausea Genitourinary: denies: dysuria Musculoskeletal: reports: no symptoms reported Integumentary: denies: rash Neurological: reports: see HPI, dizziness/vertigo Psychiatric: reports: anxiety Endocrine: reports: see HPI, increased thirst, polyuria Hematologic/Lymphatic: reports: no symptoms reported Allergic/Immunologic: reports: no symptoms reported All Other Systems: Reviewed and Negative Past History - Adult - PAST MEDICAL HISTORY-ADULT Review of Records: reports: Old Records Reviewed, Nursing Assessment Review, Medications Reviewed, Social history reviewed & non-contributory. Major Childhood Illnesses: reports: denies history Cardiovascular: reports: denies history Respiratory: reports: denies history Gastrointestinal: reports: denies history Obstetrical/Gynecological: reports: denies history Genitourinary: reports: denies history Musculoskeletal: reports: denies history Neurological: reports: denies history Endocrine/Immune: reports: Diabetes Other Conditions: reports: denies history - IMMUNIZATION STATUS Childhood Immunizations: See Nurse Assessment Flu Vaccine: See Nurse Assessment - FAMILY HISTORY Family History: reviewed, not pertinent Physical Exam-General - PHYSICAL EXAM-ADULT Initial Vital Signs Reviewed: Yes - CONSTITUTIONAL General Appearance: alert, other (generalized weakness with fruity odor) - EYES Eyes: pink conjunctivae - HEAD, EARS, NOSE, MOUTH & THROAT HENMT: moist mucous membranes - NECK Neck: non-tender, full range of motion, supple - RESPIRATORY Respiratory: lungs clear, no accessory muscle use - CARDIOVASCULAR Cardiovascular: regular rate, rhythm, no edema Progress - PLAN OF CARE/RESULTS Progress/Plan/Lab Results: Vital Signs - 8 hr 04/05/19 02:34 Pulse Rate 77 Respiratory Rate 18 Blood Pressure 162/100 O2 Sat by Pulse Oximetry 95 Laboratory Results - last 24 hr 04/05/19 02:58 WBC 11.81 H RBC 5.73 Hgb 18.0 Hct 50.1 MCV 87.4 MCH 31.4 H MCHC 35.9 RDW Std Deviation 11.9 Plt Count 324 MPV 9.7 Immature Gran % (Auto) 0.8 H Neut % (Auto) 67.4 Lymph % (Auto) 26.2 Haskell % (Auto) 5.2 Eos % (Auto) 0.1 Baso % (Auto) 0.3 Immature Gran # (Auto) 0.10 H Neut # (Auto) 7.94 H Lymph # (Auto) 3.10 Haskell # (Auto) 0.62 H Eos # (Auto) 0.01 Baso # (Auto) 0.04 Orders Category Date Time Status FSBS/Accucheck Result NOW Care 04/05/19 02:48 Active ABG [RESP] Routine Lab 04/05/19 03:29 Ordered BMP [BASIC METABOLIC PANEL] [CHEM] Stat Lab 04/05/19 02:58 Received CBC WITH ELECTRONIC DIFF [HEME] Stat Lab 04/05/19 02:58 Completed 0.9% Sodium Chloride Inj [Ns] 1,000 ml Med 04/05/19 03:29 Active IV 999 mls/hr 0.9% Sodium Chloride Inj [Ns] 2,000 ml Med 04/05/19 02:49 Active IV 999 mls/hr Insulin Human Regular [Humulin R] Med 04/05/19 03:29 Discontinued 15 unit IV NOW ONE Lido/Esquivel Alk/Al&mg Hydrox [G.i. Cocktail] Med 04/05/19 03:20 Discontinued 30 ml PO NOW ONE Result Diagrams: 04/05/19 02:58 04/05/19 02:58 - CONSULTS/PCP/HOSPITALIST Notification #1 *Consult/PCP/Hospitalist*: Dr. 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 Diabetes mellitus complication detail: without coma Qualified Code(s): E11.10 - Type 2 diabetes mellitus with ketoacidosis without coma Nausea and vomiting Qualifiers: Vomiting type: unspecified Vomiting Intractability: unspecified Qualified Code(s): R11.2 - Nausea with vomiting, unspecified Disposition: ADMITTED INPATIENT 09 Certified Medical Emergency: Emergent Condition: Serious Referrals and Follow-Ups: Livan Issa CRNP [Primary Care Provider] - - Critical Care Note This patient required my direct & personal management of CC.: No Attestation - Physician/ CARINE Attestation Patient care was provided by Advanced Practice Provider:: No The physician spent face to face time with patient:: Yes Advanced Practice Provider documentation review:: Supervising physician onsite and consulted in the evaluation and care of this patient. The physician did have a face to face encounter with the patient.
[2019-04-05 03:58] LABS: ESTIMATED GFR > 60
[2019-04-05 04:00] LABS: AGAP 40; BUN 23 mg/dL (8-22); CHLORIDE 79 mmol/L (98-107); COSMO 286; CREATININE 1.2 mg/dL (0.7-1.2); POTASSIUM 5.6 mmol/L (3.5-5.1); SODIUM 127 mmol/L (136-145); TCO2 8 mmol/L (25-35)
[2019-04-05 04:01] LABS: CALCIUM 9.1 mg/dL (8.8-10.2)
[2019-04-05 04:02] LABS: GLUCOSE 581 mg/dL (70-104)
[2019-04-05 04:03] LABS: BLOOD TYPE ARTERIAL; HCO3-(ACT) 5.4 mmoll (20.0-26.0); METHB 1.4 % (0.0-1.5); O2(CT) 21.6 mL/dL (15.0-23.0); O2HB 96.2 % (95.0-99.0); PO2(98.6) 148 mmHg (60-100); SAMPLE BLOOD; SAO2 99.6 % (95.0-100.0); THB 15.8 g/dL (11.5-17.4)
[2019-04-05 04:06] LABS: ALLEN TEST NO; MODALITY ROOM AIR; pH(98.6) 7.05 (7.35-7.45)
[2019-04-05 04:07] LABS: PCO2(98.6) 12 mmHg (35-45)
[2019-04-05] MEDS ORDERED: ROCEPHIN 1 GM in NS 50 ML IV ONE (04:17)
[2019-04-05] MEDS ORDERED: NS 100 ML ONE (05:27)
[2019-04-05 06:08] LABS: AGAP 30; ALBUMIN 4.4 g/dL (3.5-5.0); ALKALINE PHOSPHATASE 67 U/L (32-122); BUN 21 mg/dL (8-22); CALCIUM 7.1 mg/dL (8.8-10.2); CHLORIDE 95 mmol/L (98-107); COSMO 282; ESTIMATED GFR > 60; GLUCOSE 385 mg/dL (70-104); GOT 38 U/L (10-34); GPT 36 U/L (10-44); MAGNESIUM 1.9 mg/dL (1.5-2.7); POTASSIUM 4.2 mmol/L (3.5-5.1); SODIUM 131 mmol/L (136-145); TCO2 7 mmol/L (25-35); TOTAL PROTEIN 7.1 g/dL (6.3-8.3)
[2019-04-05] MEDS ORDERED: HUMULIN R (PARKWAY) 100 UNITS in NS 100 ML IV SCH (06:30)
[2019-04-05] MEDS ORDERED: HUMULIN R 100 UNIT in NS 99 ML IV SCH (06:30)
[2019-04-05] MEDS ORDERED: POTASSIUM CHLORIDE 20% LIQUID PO PRN (06:30)
[2019-04-05] MEDS ORDERED: POTASSIUM CHLORIDE 20 MEQ/SWI 20 MEQ/100 ML IVPB IV PRN (06:30)
[2019-04-05] MEDS ORDERED: SODIUM BICARBONATE 8.4% 100 MEQ in STERILE WATER INJ. 500 ML IV PRN (06:30)
[2019-04-05] MEDS ORDERED: NS 1,000 ML IV SCH (06:30)
[2019-04-05] MEDS ORDERED: POTASSIUM CHLORIDE 10% LIQUID PO PRN (06:30)
[2019-04-05] MEDS ORDERED: MAGNESIUM SULFATE 2 GM/S.W.I. 2 GM/50 ML IVPB IV PRN (06:30)
[2019-04-05] MEDS ORDERED: SODIUM PHOSPHATE 30 MMOL in D5W 250 ML IV PRN (06:30)
[2019-04-05] MEDS ORDERED: D50W SYRINGE IV PRN (06:30)
[2019-04-05] MEDS ORDERED: POTASSIUM CHLORIDE 40 MEQ/SWI 40 MEQ/100 ML IVPB IV PRN (06:30)
[2019-04-05 06:59] LABS: AMYLASE 24 U/L (20-200); LIPASE 15 U/L (13-60)
--- NOTE | 2019-04-05 07:35 | Diag Imaging Result Doc PS360 ---
FLAT/UPRIGHT ABD/1 VIEW CHEST - 04/05/2019 INDICATION: nausea,vomiting TECHNIQUE: COMPARISON: 02/07/2019 FINDINGS: The chest is clear. There is a nonobstructive bowel gas pattern. No free air or abnormal calcifications. IMPRESSION: Negative exam. Electronically signed by Richard Ponce 04/05/2019 7:33 AM
[2019-04-05 08:40] LABS: ESTIMATED GFR > 60
[2019-04-05 08:41] LABS: AGAP 23; BUN 19 mg/dL (8-22); CALCIUM 7.1 mg/dL (8.8-10.2); CHLORIDE 97 mmol/L (98-107); COSMO 271; CREATININE 0.8 mg/dL (0.7-1.2); GLUCOSE 210 mg/dL (70-104); MAGNESIUM 1.9 mg/dL (1.5-2.7); POTASSIUM 4.6 mmol/L (3.5-5.1); SODIUM 131 mmol/L (136-145); TCO2 10 mmol/L (25-35)
[2019-04-05] MEDS: NS 1,000 ML IV SCH ×2 (11:24→11:25)
[2019-04-05] MEDS ORDERED: D5 1/2 NS 1,000 ML IV SCH (11:30)
[2019-04-05 13:03] LABS: AGAP 15; BUN 16 mg/dL (8-22); CALCIUM 7.3 mg/dL (8.8-10.2); CHLORIDE 100 mmol/L (98-107); COSMO 268; CREATININE 0.8 mg/dL (0.7-1.2); ESTIMATED GFR > 60; GLUCOSE 179 mg/dL (70-104); MAGNESIUM 1.9 mg/dL (1.5-2.7); PHOSPHORUS 1.7 mg/dL (2.7-4.5); POTASSIUM 4.6 mmol/L (3.5-5.1); SODIUM 131 mmol/L (136-145); TCO2 16 mmol/L (25-35)
[2019-04-05] MEDS ORDERED: LOVENOX SUBQ SCH (14:00)
--- NOTE | 2019-04-05 14:18 | HISTORY AND PHYSICAL ---
CHIEF COMPLAINT: High blood sugar. HISTORY OF PRESENT ILLNESS: This is a 29-year-old gentleman with a history of diabetes mellitus who presents to the emergency room complaining of nausea and vomiting over the last 5 days. He states that he has not eaten much during this time, and he is not taking his diabetic medications. He was found to have a blood sugar of 581. Lab work revealed DKA. He was admitted to ICU and placed on DKA protocol. PAST MEDICAL HISTORY: Diabetes mellitus type 1, insulin-dependent, extremely noncompliant. PAST SURGICAL HISTORY: Tonsillectomy, shoulder surgery. SOCIAL HISTORY: He smokes about a half pack a day. He denies alcohol or illicit drug use. ALLERGIES: No known drug allergies. HOME MEDICATIONS: A list will be obtained by the nursing staff, and once verified, we will review and restart as appropriate. REVIEW OF SYSTEMS: Discussed with patient with pertinent positives stated in HPI. He denied any syncope, dizziness, chest pain, palpitations, shortness of breath, cough, fever, chills, any recent weight loss or weight gain, any black or bloody vomitus or stools, hematuria, or dysuria. PHYSICAL EXAMINATION: GENERAL: This is a 31-year-old gentleman who is lying on the bed in ICU in no distress. VITAL SIGNS: Blood pressure is 132/81 with a heart rate of 84, respirations 18, temperature 97.9, with room air sats 99% to 100%. EYES: Pupils equal, round, react to light. EOMs are intact. Sclerae are anicteric. HEENT: Head is normocephalic, atraumatic. Mucous membranes are moist. NECK: Supple with trachea midline. CARDIOVASCULAR: Regular rate and rhythm. S1 and S2 appreciated. He has no lower extremity edema. Calves are nontender bilateral with peripheral pulses palpable x4 extremities. PULMONARY: Breath sounds are clear. No increased work of breathing noted. Chest rise and fall symmetric with respiration. GASTROINTESTINAL: Abdomen is soft, nontender, nondistended. Bowel sounds in all 4 quadrants. GENITOURINARY: No CVA or suprapubic tenderness. NEUROLOGIC: Alert and oriented x3. SKIN: Warm and dry. LABS: WBC is 11.8 with hemoglobin 18, hematocrit 50, and platelets of 324,000. Sodium is 127, potassium 5.6, BUN is 23, creatinine 1.2 with a glucose of 581. ABGs show pH is 7.05 with a pCO2 of 12, PO2 of 148, and bicarb of 5.4. RADIOLOGY: Abdominal x-ray revealed a negative exam. Chest x-ray is clear. ASSESSMENT AND PLAN: 1. Diabetic ketoacidosis. 2. Leukocytosis which is probably reactive. 3. Hyponatremia secondary to #1. 4. Hyperkalemia secondary to #1. 5. Hypophosphatemia secondary to #1. PLAN: The patient has been admitted to ICU, placed on telemetry. He will be monitored and treated with DKA protocol. We will use Zofran for nausea. We will use Lovenox for DVT prophylaxis. PPI for GI prophylaxis. Further treatments pending hospital course. Dictated by NICHOLAS Chase for Jp Palomino MD cc: NICHOLAS Chase MD
[2019-04-05 18:05] LABS: AGAP 13; BUN 13 mg/dL (8-22); CALCIUM 7.6 mg/dL (8.8-10.2); CHLORIDE 99 mmol/L (98-107); COSMO 265; CREATININE 0.7 mg/dL (0.7-1.2); ESTIMATED GFR > 60; GLUCOSE 178 mg/dL (70-104); PHOSPHORUS 1.7 mg/dL (2.7-4.5); POTASSIUM 3.8 mmol/L (3.5-5.1); SODIUM 130 mmol/L (136-145); TCO2 18 mmol/L (25-35)
[2019-04-05] MEDS ORDERED: LANTUS INSULIN SUBQ ONE (18:44)
[2019-04-05] MEDS: HUMALOG (PARKWAY) SUBQ SCH (20:47)
--- NOTE | 2019-04-05 21:57 | HISTORY AND PHYSICAL ---
ADDENDUM: Patient seen and examined by myself. Full note dictated and discussed with nurse practitioner. Patient only takes Lantus and NovoLog at home. States he has not been eating for the past couple of days therefore he has not been taking his insulin. Notes the symptoms continue to worsen. Denies any fevers or chills. States that his shoulders been hurting and that is the reason he not been getting out of bed get any food. We will admit him the hospital ICU. Treat for DKA and will follow. cc: Jp Palomino MD
[2019-04-06 06:54] LABS: BASO# 0.03 X1000 (0.0-0.2); BASO% 0.4 % (0.0-0.8); EOS# 0.06 X1000 (0.0-0.7); EOS% 0.7 % (0.0-10.0); HEMATOCRIT 38.6 % (42.0-52.0); HEMOGLOBIN 14.1 g/dL (14.0-18.0); IMM GRAN# 0.02 X1000 (0.0-0.04); IMM GRAN% 0.2 % (0.0-0.5); LYMPH# 3.19 X1000 (1.2-3.4); MCH 31.5 PG (27-31); MCHC 36.5 g/dL (33-37); MCV 86.4 FL (81-99); MONO# 0.72 X1000 (0.11-0.59); MONO% 8.6 % (1.7-9.3); MPV 9.2 FL (7.4-10.4); NEUT# 4.37 X1000 (1.4-6.5); NEUT% 52.1 % (42.2-75.2); PLT 208 X1000 (130-400); RBC 4.47 XMIL (4.7-6.1); RDW 11.4 % (11.5-14.5); WBC 8.39 X1000 (4.8-10.8)
[2019-04-06] MEDS: HUMALOG (PARKWAY) SUBQ SCH ×2 (07:02→10:50)
[2019-04-06 07:13] LABS: AGAP 18; ALBUMIN 3.8 g/dL (3.5-5.0); ALKALINE PHOSPHATASE 53 U/L (32-122); BUN 13 mg/dL (8-22); CALCIUM 7.9 mg/dL (8.8-10.2); CHLORIDE 96 mmol/L (98-107); COSMO 272; CREATININE 0.6 mg/dL (0.7-1.2); ESTIMATED GFR > 60; GLUCOSE 262 mg/dL (70-104); GOT 19 U/L (10-34); GPT 23 U/L (10-44); POTASSIUM 3.7 mmol/L (3.5-5.1); SODIUM 131 mmol/L (136-145); TCO2 17 mmol/L (25-35); TOTAL PROTEIN 5.9 g/dL (6.3-8.3)
[2019-04-06] MEDS ORDERED: LANTUS INSULIN SUBQ SCH (09:30)
[2019-04-06] MEDS ORDERED: CYMBALTA PO SCH (09:30)
[2019-04-06 10:19] VITALS: BP 116/80
[2019-04-06] MEDS ORDERED: NEURONTIN PO SCH (13:00)
--- NOTE | 2019-04-06 16:30 | DISCHARGE SUMMARY ---
ADMISSION DATE: 04/05/2019 DISCHARGE DATE: 04/06/2019 DISCHARGE DIAGNOSES: 1. Diabetic ketoacidosis, resolved. 2. Diabetes, noncompliant. 3. Leukocytosis, resolved. 4. Hypernatremia, resolved. 5. Hyperkalemia, resolved. 6. Hypophosphatemia, resolved. 7. Left shoulder pain. CONSULTATIONS: None. PROCEDURES: None. BRIEF HOSPITAL COURSE: Patient is a 29-year-old male who presented to the hospital as he has many times in the past with markedly elevated blood sugar and diagnosed with DKA. He was admitted to the hospital and placed on insulin drip and DKA protocol. On discharge, his blood sugars were 200. He has been off insulin drip for 12 hours. He has tolerated a full diet without any difficulty and, therefore, he will be discharged home. TIME SPENT: Greater than 30 minutes was spent in total care. cc: Jp Palomino MD
== END 2019-04-06 12:00 | disposition home or self-care (01) | DRG 638 ==
LOC: P.ED 02:26 → P.ICU 06:08
PROVIDERS: ATTEND Family Medicine
CPT/HCPCS: 36415; 74022; 80048; 80053; 82150; 82805; 82948; 83605; 83690; 83735; 84100; 85025; 87040; A9270; J0696; J1650; J1815; J7030; XXXXX

== ENCOUNTER 2020-01-06 07:39 | Inpatient (IN) ==
[2020-01-06 08:24] LABS: BLOOD TYPE ARTERIAL; SAMPLE BLOOD
[2020-01-06] MEDS ORDERED: NS 1,000 ML IV ONE ×3 (08:25→10:05)
[2020-01-06 08:26] LABS: HEMATOCRIT 48.5 % (42.0-52.0); HEMOGLOBIN 15.9 g/dL (14.0-18.0); MCH 29.3 PG (27-31); MCHC 32.8 g/dL (33-37); MCV 89.3 FL (81-99); RBC 5.43 XMIL (4.7-6.1); RDW 14.4 % (11.5-14.5); WBC 7.66 X1000 (4.8-10.8)
[2020-01-06 08:29] LABS: BE -13.5 mmoll (-3.0-3.0); METHB 1.3 % (0.0-1.5); O2(CT) 21.9 mL/dL (15.0-23.0); O2HB 95.7 % (95.0-99.0); PO2(98.6) 110 mmHg (60-100); SAO2 99.2 % (95.0-100.0); THB 16.2 g/dL (11.5-17.4); pH(98.6) 7.32 (7.35-7.45)
[2020-01-06 08:38] LABS: ESTIMATED GFR > 60
[2020-01-06 08:49] LABS: PCO2(98.6) 19 mmHg (35-45)
[2020-01-06 08:50] LABS: ALLEN TEST YES; HCO3-(ACT) 14.3 mmoll (20.0-26.0); MODALITY ROOM AIR
[2020-01-06 09:00] LABS: AGAP 37; ALBUMIN 4.8 g/dL (3.5-5.0); ALKALINE PHOSPHATASE 98 U/L (32-122); BUN 15 mg/dL (8-22); CALCIUM 9.3 mg/dL (8.8-10.2); CHLORIDE 89 mmol/L (98-107); CK PROFILE 31 U/L (24-204); COSMO 286; CREATININE 1.3 mg/dL (0.7-1.2); GLUCOSE 377 mg/dL (70-104); GOT 31 U/L (10-34); GPT 31 U/L (10-44); MAGNESIUM 1.9 mg/dL (1.5-2.7); PHOSPHORUS 3.5 mg/dL (2.7-4.5); SODIUM 135 mmol/L (136-145); TCO2 9 mmol/L (25-35); TOTAL PROTEIN 8.7 g/dL (6.3-8.3)
--- NOTE | 2020-01-06 09:12 | PROVIDER DOCUMENTATION ---
HPI-General Adult - General Chief Complaint: DKA ALERT Stated Complaint: ELEVATED BLOOD SUGAR, N/V Time Seen by Provider: 01/06/20 07:42 Source: patient Allergies/Adverse Reactions: Patient Allergies Allergy/AdvReac Type Severity Reaction Status Date / Time No Known Allergies Allergy Verified 02/07/19 07:27 Home Medications: Home Medication List Medication Instructions Recorded Confirmed Last Taken Type Duloxetine [Cymbalta] 30 mg PO DAILY 02/07/19 04/05/19 Unknown History Gabapentin 300 mg PO TID 02/07/19 04/05/19 Unknown History Insulin Aspart [Novolog] 15 units SQ AC 04/05/19 04/05/19 Unknown History Insulin Glargine,Hum.rec.anlog 10 units SQ BID 04/05/19 04/05/19 Unknown History [Lantus Solostar] - History of Present Illness -Gen Adult Nature of Presenting Problems: DEPRESSED YOUNG MAN DESCRIBE UNABLE TO EAT X 3 DAYS THEN VOMITING SINCE 0400. MANY EPISODES DKA SO CAME TO ER. MIREYA JARAMILLOBEATRICE, PCP EBONI BURR.NO FEVER OR INFECTION. TREATED WITH METOPROLOL FOR TACHYCARDIAS. ON TRACEBA 15 BID AND SS NOVALOG. Review of Systems - Adult - REVIEW OF SYSTEMS - ADULT Constitutional: reports: no symptoms reported, fatique. denies: fever Eyes: reports: no symptoms reported Ears, Nose, Mouth & Throat: reports: no symptoms reported Cardiovascular: reports: no symptoms reported Respiratory: reports: no symptoms reported Gastrointestinal: reports: see HPI Genitourinary: reports: no symptoms reported. denies: dysuria Musculoskeletal: reports: no symptoms reported Integumentary: reports: no symptoms reported Neurological: reports: no symptoms reported Psychiatric: reports: no symptoms reported Endocrine: reports: no symptoms reported Hematologic/Lymphatic: reports: no symptoms reported Allergic/Immunologic: reports: no symptoms reported All Other Systems: Reviewed and Negative Past History - Adult - PAST MEDICAL HISTORY-ADULT Review of Records: reports: Old Records Reviewed, Nursing Assessment Review, Medications Reviewed, Social history reviewed & non-contributory. Major Childhood Illnesses: reports: denies history Cardiovascular: reports: denies history Respiratory: reports: denies history Gastrointestinal: reports: denies history Obstetrical/Gynecological: reports: denies history Genitourinary: reports: denies history Musculoskeletal: reports: denies history Neurological: reports: denies history Endocrine/Immune: reports: Diabetes Other Conditions: reports: denies history - IMMUNIZATION STATUS Childhood Immunizations: See Nurse Assessment Flu Vaccine: See Nurse Assessment - FAMILY HISTORY Family History: reviewed, not pertinent Physical Exam-General - PHYSICAL EXAM-ADULT Initial Vital Signs Reviewed: Yes (TACHYCARD) - CONSTITUTIONAL General Appearance: alert, mild distress - EYES Eyes: PERRL/EOMI - HEAD, EARS, NOSE, MOUTH & THROAT HENMT: normocephalic/atraumatic, moist mucous membranes - NECK Neck: full range of motion - RESPIRATORY Respiratory: lungs clear - CARDIOVASCULAR Cardiovascular: regular rate, rhythm, no edema, tachycardia - GASTROINTESTINAL (ABDOMEN) Abdominal Exam: non tender, soft - MUSCULOSKELETAL Extremity: normal range of motion, non-tender, normal gait - SKIN Integumentary: normal color, normal turgor, warm/dry - NEUROLOGIC Neurologic: timber rider II-XII nml as tested, grossly normal, no motor/sensory deficits - PSYCHIATRIC Psych/Mental Status: normal mood/affect, normal thought content, normal thought process, oriented x 3 Progress - PLAN OF CARE/RESULTS Progress/Plan/Lab Results: Vital Signs - 8 hr 01/06/20 07:47 Temperature 99 F Pulse Rate 131 H Respiratory Rate 25 H Blood Pressure 128/91 O2 Sat by Pulse Oximetry 99 Laboratory Results - last 24 hr 01/06/20 01/06/20 01/06/20 07:52 08:00 08:00 WBC RBC Hgb Hct MCV MCH MCHC RDW Std Deviation Plt Count MPV Specimen Type ARTERIAL Sample Site R RADIAL pH 7.32 L pCO2 19 L* pO2 110 H HCO3 14.3 L Base Excess -13.5 L Oxyhemoglobin 95.7 ABG O2 Sat (Calculated) 21.9 ABG O2 Saturation 99.2 ABG Carboxyhemoglobin 2.20 ABG Methemoglobin 1.3 Kendrick Test YES A-a O2 Difference 16.0 Total Hemoglobin 16.2 Lactate 2.40 H Blood Gas Modality ROOM AIR FiO2 % 21.0 Sodium Potassium Chloride Carbon Dioxide Anion Gap BUN Creatinine Estimated GFR/1.73 m2 BUN/Creatinine Ratio Glucose POC Glucose 397 H Calculated Osmolality Calcium Phosphorus Magnesium Total Bilirubin AST ALT Alkaline Phosphatase Creatine Kinase Troponin T High Sens Total Protein Albumin Globulin Albumin/Globulin Ratio Acetone Level LARGE A 01/06/20 01/06/20 01/06/20 08:00 08:00 08:00 WBC 7.66 RBC 5.43 Hgb 15.9 Hct 48.5 MCV 89.3 MCH 29.3 MCHC 32.8 L RDW Std Deviation 14.4 Plt Count 319 MPV 9.0 Specimen Type Sample Site pH pCO2 pO2 HCO3 Base Excess Oxyhemoglobin ABG O2 Sat (Calculated) ABG O2 Saturation ABG Carboxyhemoglobin ABG Methemoglobin Kendrick Test A-a O2 Difference Total Hemoglobin Lactate Blood Gas Modality FiO2 % Sodium 135 L Potassium 4.0 Chloride 89 L Carbon Dioxide 9 L Anion Gap 37 BUN 15 Creatinine 1.3 H Estimated GFR/1.73 m2 > 60 BUN/Creatinine Ratio 12 Glucose 377 H POC Glucose Calculated Osmolality 286 Calcium 9.3 Phosphorus 3.5 Magnesium 1.9 Total Bilirubin 0.50 AST 31 ALT 31 Alkaline Phosphatase 98 Creatine Kinase 31 Troponin T High Sens < 6 Total Protein 8.7 H Albumin 4.8 Globulin 4.0 Albumin/Globulin Ratio 1.0 Acetone Level Orders Category Date Time Status Cardiac Monitoring DIRECTED Care 01/06/20 07:51 Active FSBS/Accucheck Result Q1H Care 01/06/20 07:51 Active Finger Stick Blood Sugar (ED) DIRECTED Care 01/06/20 07:51 Active NEWS Score >or=5:Order NEWS Bundle S.O. NOW Care 01/06/20 07:51 Active Saline Loc NOW Care 01/06/20 07:51 Active Saline Loc NOW Care 01/06/20 07:51 Active Vital Signs Order Q1H Care 01/06/20 07:51 Active ABG [RESP] Routine Lab 01/06/20 08:00 Completed ACETONE SERUM [CHEM] Stat Lab 01/06/20 08:00 Completed CBC WITH NO DIFF [HEME] Stat Lab 01/06/20 08:00 Completed CK PROFILE [SP CHEM] Stat Lab 01/06/20 08:00 Completed COMPREHENSIVE METABOLIC PANEL [CHEM] Stat Lab 01/06/20 08:00 Completed MAGNESIUM [CHEM] Stat Lab 01/06/20 08:00 Completed PHOSPHORUS [CHEM] Stat Lab 01/06/20 08:00 Completed TROPONIN T HIGH SENSITIVITY Stat Lab 01/06/20 08:00 Completed URINALYSIS W/POSS RFLX CULT [URINALYSIS] Stat Lab 01/06/20 08:23 Ordered URINALYSIS [URINALYSIS] Stat Lab 01/06/20 07:51 Uncollected URINE DRUG SCREEN PL Stat Lab 01/06/20 07:51 Uncollected [address]INE DRUG SCREEN PL Stat Lab 01/06/20 08:26 Ordered 0.9% Sodium Chloride Inj [Ns] 1,000 ml Med 01/06/20 08:25 Active IV 999 mls/hr EKG [EKG] Routine Ther 01/06/20 07:51 Ordered Result Diagrams: 01/06/20 08:00 01/06/20 08:00 - CONSULTS/PCP/HOSPITALIST Notification #1 *Consult/PCP/Hospitalist*: DR YAÑEZ Time Discussed: 09:12 Consult Disposition: Admit Departure - Departure Date of Disposition Decision: 01/06/20 Time of Disposition Decision: 09:11 DIAGNOSIS: Diabetic keto-acidosis Qualifiers: Diabetes mellitus type: type 1 Diabetes mellitus complication detail: without coma Qualified Code(s): E10.10 - Type 1 diabetes mellitus with ketoacidosis without coma Nausea and vomiting Qualifiers: Vomiting type: unspecified Vomiting Intractability: non-intractable Qualified Code(s): R11.2 - Nausea with vomiting, unspecified Disposition: ADMITTED INPATIENT 09 Certified Medical Emergency: Emergent Condition: Fair Referrals and Follow-Ups: Eboni Burr CRNP [Primary Care Provider] - - Critical Care Note This patient required my direct & personal management of CC.: Yes Total Time (mins): 30 Critical Care Statement: This patient required my direct personal management to treat or rule out processes, the absence of which, could potentiallly result in sudden, clinically significant life or limb threatening deterioration. Attestation - Physician/ CARINE Attestation Patient care was provided by Advanced Practice Provider:: No The physician spent face to face time with patient:: Yes Advanced Practice Provider documentation review:: Supervising physician onsite and consulted in the evaluation and care of this patient. The physician did have a face to face encounter with the patient.
[2020-01-06] MEDS ORDERED: ZOFRAN IV ONE (09:22)
--- NOTE | 2020-01-06 09:53 | EKG Report ---
Test Performed on : 01/06/2020 08:52:36 AM Test Reason : DKA Blood Pressure : / mmHG Vent. Rate : 084 BPM Atrial Rate : 084 BPM P-R Int : 166 ms QRS Dur : 086 ms QT Int : 380 ms P-R-T Axes : 051 032 043 degrees QTc Int : 449 ms Normal sinus rhythm. Early repolarization Normal ECG No previous ECGs available Unconfirmed Result
[2020-01-06] MEDS ORDERED: HUMULIN R IV ONE (10:02)
[2020-01-06] MEDS ORDERED: D50W SYRINGE IV PRN (10:02)
[2020-01-06] MEDS ORDERED: HUMULIN R 100 UNIT in NS 100 ML IV SCH ×2 (10:15→12:00)
[2020-01-06] MEDS ORDERED: ZOFRAN IV PRN (10:21)
[2020-01-06] MEDS ORDERED: HUMULIN R ONE (10:26)
[2020-01-06] MEDS ORDERED: PROTONIX IV SCH (10:30)
[2020-01-06] MEDS ORDERED: SODIUM CHLORIDE 0.9% INJ SCH (10:30)
[2020-01-06] MEDS ORDERED: D5 NS 1,000 ML IV PRN (11:55)
[2020-01-06] MEDS ORDERED: SODIUM BICARBONATE 8.4% 100 MEQ in STERILE WATER INJ. 500 ML IV PRN (11:55)
[2020-01-06] MEDS ORDERED: MAGNESIUM SULFATE 2 GM/S.W.I. 2 GM/50 ML IVPB IV PRN (11:55)
[2020-01-06] MEDS ORDERED: POTASSIUM CHLORIDE 40 MEQ/SWI 40 MEQ/100 ML IVPB IV PRN (11:55)
[2020-01-06] MEDS ORDERED: SODIUM PHOSPHATE 30 MMOL in D5W 250 ML IV PRN (11:55)
[2020-01-06] MEDS ORDERED: POTASSIUM CHLORIDE 10% LIQUID PO PRN (11:55)
[2020-01-06] MEDS ORDERED: POTASSIUM CHLORIDE 20 MEQ/SWI 20 MEQ/100 ML IVPB IV PRN (11:55)
[2020-01-06] MEDS ORDERED: TYLENOL PO PRN (11:55)
[2020-01-06] MEDS ORDERED: POTASSIUM CHLORIDE 20% LIQUID PO PRN (11:55)
[2020-01-06] MEDS ORDERED: NS 1,000 ML IV SCH (12:00)
--- NOTE | 2020-01-06 12:07 | HISTORY AND PHYSICAL ---
CHIEF COMPLAINT: I am in DKA. HISTORY OF PRESENT ILLNESS: This is a 29-year-old gentleman with a history of insulin-dependent diabetes mellitus, who presents to the emergency room complaining of nausea and vomiting with inability to eat x3 days. He states that he has recently been admitted to an outlying facility for DKA. After discharge, he wears a continuous glucose monitor. He states that his blood sugars stay in the high 350s. PAST MEDICAL HISTORY: Diabetes mellitus type 1 with noncompliance. PAST SURGICAL HISTORY: Tonsillectomy, shoulder surgery. SOCIAL HISTORY: He smokes about a half pack a day. Denies alcohol or illicit drug use. ALLERGIES: No known drug allergies. HOME MEDICATIONS: A list will be obtained by the nursing staff and once verified will review and restart as appropriate. REVIEW OF SYSTEMS: Discussed with the patient with pertinent positives stated in the HPI. He denied any syncope or dizziness, any chest pain or palpitations, any productive cough, shortness of breath, fevers, chills, PND, orthopnea, any diarrhea, constipation, black or bloody vomitus or stools, any hematuria, dysuria, frequency, urgency. PHYSICAL EXAMINATION: GENERAL: This is a 29-year-old gentleman who is sitting up on the stretcher in the emergency room in no distress. VITAL SIGNS: Blood pressure is 109/84 with a heart rate of 91, respirations are 20, temperature is 99 degrees, with room air saturations 97% to 99%. EYES: Pupils are equal, round, react to light. Sclerae are anicteric. HEENT: Head is normocephalic, atraumatic. Mucous membranes are dry. NECK: Supple with trachea midline. CARDIOVASCULAR: Regular rate and rhythm. S1 and S2 appreciated. No murmur. He has no lower extremity edema. Calves are nontender with peripheral pulses palpable x4 extremities. GASTROINTESTINAL: Abdomen is soft, nontender, nondistended with bowel sounds in all 4 quadrants. GENITOURINARY: No CVA or suprapubic tenderness. NEUROLOGIC: He is alert and oriented. SKIN: Warm and dry. LABS: WBC is 7.6 with hemoglobin 15.9, hematocrit 45, and platelets of 319,000. ABGs showed a pH 7.32, pCO2 of 19, PO2 of 110, and bicarb of 14.3. These are on room air. Chemistry with sodium 135, potassium 4, CO2 9, anion gap 37, BUN 15, creatinine 1.3 with a glucose of 377. Magnesium is 1.9, phosphorus 3.5. Acetone is large. EKG reveals sinus rhythm at a rate of 84. ASSESSMENT: This is a 29-year-old gentleman with: 1. Diabetic ketoacidosis. 2. Diabetes mellitus type 1 with noncompliance. 3. Nausea and vomiting. PLAN: 1. We will transfer to [facility]. 2. DKA protocol. 3. Dietary consult. 4. Zofran for nausea. 5. Gastric acid suppression with Protonix. 6. Plan was discussed with Dr. Palomino. Further treatments pending hospital course. Dictated by NICHOLAS Chase for Jp Palomino MD cc: NICHOLAS Chase MD
[2020-01-06 12:51] LABS: URINE SOURCE CLEAN CATCH
[2020-01-06 13:02] LABS: BILIRUBIN URINE NEGATIVE (NEGATIVE); BLOOD URINE MODERATE (NEGATIVE); COLOR YELLOW; GLUCOSE URINE >1000 mg/dL (NEGATIVE); KETONE URINE >150 mg/dL (NEGATIVE); LEUKOCYTES URINE NEGATIVE (NEGATIVE); NITRITE URINE NEGATIVE (NEGATIVE); PH URINE 5.5; PROTEIN URINE TRACE mg/dL (NEGATIVE); SP GRAVITY URINE 1.021; TURBIDITY URINE CLEAR (CLEAR); UR EPITHELIAL CELLS <10 /HPF (<10); URINE BACTERIA NEGATIVE /HPF; URINE RBC <10 /HPF (<10); URINE WBC <10 /HPF (<10); UROBILINOGEN URINE NORMAL (NORMAL)
[2020-01-06 13:35] LABS: AGAP 13; BUN 14 mg/dL (8-22); CALCIUM 8.5 mg/dL (8.8-10.2); CHLORIDE 96 mmol/L (98-107); COSMO 265; CREATININE 0.9 mg/dL (0.7-1.2); ESTIMATED GFR > 60; GLUCOSE 164 mg/dL (70-104); MAGNESIUM 1.6 mg/dL (1.5-2.7); PHOSPHORUS 2.1 mg/dL (2.7-4.5); POTASSIUM 4.1 mmol/L (3.5-5.1); SODIUM 130 mmol/L (136-145); TCO2 21 mmol/L (25-35)
[2020-01-06] MEDS ORDERED: LEVEMIR SUBQ ONE (14:23)
[2020-01-06] MEDS ORDERED: SODIUM PHOSPHATE 30 MMOL in NS 250 ML IV ONE (14:59)
[2020-01-06] MEDS: NS 1,000 ML IV SCH ×2 (16:07→20:49)
[2020-01-06 16:44] LABS: UR AMPHETAMINES QUAL NONE DETECTED (NONE DETECT); UR BARBITUATES QUAL NONE DETECTED (NONE DETECT); UR BENZODIAZEPIN QUAL NONE DETECTED (NONE DETECT); UR CANNABINOIDS QUAL PRESUMPTIVE POSITIVE (NONE DETECT); UR COCAINE QUAL NONE DETECTED (NONE DETECT); UR METHADONE QUAL NONE DETECTED (NONE DETECT); UR OPIATES QUAL NONE DETECTED (NONE DETECT); UR OXYCODONE QUAL NONE DETECTED (NONE DETECT); UR PCP QUAL NONE DETECTED (NONE DETECT)
[2020-01-06] MEDS: HUMALOG SUBQ SCH ×2 (17:35→20:48)
--- NOTE | 2020-01-06 18:46 | PROGRESS NOTE ---
DATE: 01/06/2020 Patient presented to the hospital with nausea and notes his blood sugars have been anywhere from 200 to 400. He states he does check it frequently, has had multiple episodes of DKA. Upon lab value evaluation, he is noted to be in DKA again. We are going to admit him to the hospital, place him on insulin and DKA protocol, and we will follow. cc: Jp Palomino MD
[2020-01-07] MEDS: HUMALOG SUBQ SCH ×3 (00:25→09:13)
[2020-01-07] MEDS: NS 1,000 ML IV SCH ×3 (04:28→08:10)
[2020-01-07 06:28] LABS: AGAP 12; ALBUMIN 3.3 g/dL (3.5-5.0); BUN 11 mg/dL (8-22); CALCIUM 8.1 mg/dL (8.8-10.2); CHLORIDE 99 mmol/L (98-107); COSMO 273; CREATININE 0.7 mg/dL (0.7-1.2); ESTIMATED GFR > 60; GLUCOSE 192 mg/dL (70-104); POTASSIUM 3.5 mmol/L (3.5-5.1); SODIUM 134 mmol/L (136-145); TCO2 23 mmol/L (25-35)
[2020-01-07] MEDS ORDERED: SODIUM PHOSPHATE 40 MMOL in NS 250 ML IV ONE (06:32)
[2020-01-07 06:37] LABS: HEMATOCRIT 36.6 % (42.0-52.0); HEMOGLOBIN 12.2 g/dL (14.0-18.0); MCH 29.8 PG (27-31); MCHC 33.3 g/dL (33-37); MCV 89.3 FL (81-99); MPV 8.9 FL (7.4-10.4); RBC 4.1 XMIL (4.7-6.1); RDW 14.4 % (11.5-14.5); WBC 6.31 X1000 (4.8-10.8)
[2020-01-07 07:44] VITALS: BP 113/72
[2020-01-07] MEDS ORDERED: LANTUS INSULIN SUBQ SCH (09:00)
--- NOTE | 2020-01-08 06:51 | DISCHARGE SUMMARY ---
ADMISSION DATE: 01/06/2020 DISCHARGE DATE: 01/07/2020 FINAL DISCHARGE DIAGNOSES: Diabetic ketoacidosis. HOSPITAL COURSE: Mr. Malcolm is a 29-year-old male with a history of known insulin-dependent diabetes who presented to the ER at [facility] with a chief complaint of nausea, vomiting and 3 days of inability to eat. Upon further assessment, the patient was noted to be in DKA. The patient was started on IV fluids and an insulin drip and transferred to [facility] to the PVC unit. Eventually, the patient's anion gap closed and the insulin drip was discontinued and transitioned to subcutaneous insulin. The patient was noted to have several electrolyte abnormalities that were corrected. The patient's blood sugar continued to improve and the patient was ultimately cleared for discharge on 01/07/2020. DISCHARGE MEDICATIONS: 1. NovoLog sliding scale. 2. Tresiba 15 units subcutaneous twice a day. 3. Lopressor 50 mg oral twice a day. 4. Zanaflex 4 mg oral twice a day. DISCHARGE DIET: 1800 ADA diet. ACTIVITY: As tolerated. FOLLOWUP INSTRUCTIONS: The patient has been advised to follow up with his primary care physician in 1 week. The patient was also counseled about smoking cessation and the importance of compliance with taking his diabetic medications. cc: Chani Hassan MD
== END 2020-01-07 11:55 | disposition home or self-care (01) | DRG 639 ==
LOC: P.ED 07:39 → 2N 10:26 → SUATTDRO 10:26
PROVIDERS: ATTEND Internal Medicine